=== PATIENT | female | born 1970 | race Caucasian/White ===

== ENCOUNTER 2016-05-28 10:37 | Emergency (ER) | payer OTHER ==
[~2016-05-28] VITALS: Ht 156.2 cm; Wt 113.5 kg
[2016-05-28 10:39] VITALS: BP 107/59; PULSE 82; RESP 20; TEMP 98.4; O2SAT 96
[2016-05-28 10:43] VITALS: PULSE 96; RESP 30; O2SAT 100
[2016-05-28] MEDS ORDERED: diphenhydrAMINE HCL 50 MG/ML VIAL IM ONE (11:15)
[2016-05-28] MEDS ORDERED: LORazepam 2 MG/ML VIAL IM ONE (11:15)
[2016-05-28] MEDS ORDERED: LEVO25TA4 PO ×2 (11:22→11:29)
[2016-05-28] MEDS ORDERED: D32000TA PO (11:29)
[2016-05-28] MEDS ORDERED: LIOT25TA3 PO (11:29)
[2016-05-28] MEDS ORDERED: NEXI40CA PO (11:29)
[2016-05-28] MEDS ORDERED: VITA500C (11:29)
[2016-05-28] MEDS ORDERED: TRI-TAB3 (11:32)
[2016-05-28] MEDS ORDERED: TRIH5TAB2 PO (11:42)
[2016-05-28] MEDS ORDERED: PROB1CAP12 (11:42)
[2016-05-28] MEDS ORDERED: ACIDCAP5 (11:42)
[2016-05-28] MEDS ORDERED: BENA25TA3 PO (11:42)
[2016-05-28] MEDS ORDERED: CLOZ25 PO (11:44)
[2016-05-28] MEDS ORDERED: CLOZ100 PO (11:44)
[2016-05-28 12:19] VITALS: BP 139/72; TEMP 98.5
[2016-05-28 12:26] LABS: AUTOMATED NEUTROPHIL # 9.3 TH/MM3 (1.8-7.7); BASOPHIL # 0.1 TH/MM3 (0-0.2); EOSINOPHIL # 0.2 TH/MM3 (0-0.4); EOSINOPHIL % 1.9 % (0.0-4.0); HEMATOCRIT 40.9 % (35.0-46.0); HEMO FLAGS DIFF FINAL; LYMPH % 15.1 % (9.0-44.0); LYMPHOCYTE # 1.8 TH/MM3 (1.0-4.8); MEAN CORPUSCULAR HEMOGLOBIN 26.9 PG (27.0-34.0); MEAN CORPUSCULAR HGB CONC 32.8 % (32.0-36.0); MONO % 4.8 % (0.0-8.0); NEUT % 77.2 % (16.0-70.0); PLATELET COUNT 240 TH/MM3 (150-450); RED BLOOD COUNT 4.99 MIL/MM3 (4.00-5.30); RED CELL DISTRIBUTION WIDTH 18.9 % (11.6-17.2)
[2016-05-28 12:34] LABS: AMPHETAMINE, URINE NEG (NEG); BARBITURATES, URINE NEG (NEG); COCAINE, URINE NEG (NEG)
[2016-05-28 12:43] LABS: ALKALINE PHOSPHATASE 123 U/L (45-117); ALT (GPT) 113 U/L (10-53); ANION GAP 13 MEQ/L (5-15); AST (GOT) 116 U/L (15-37); BICARBONATE 20.1 MEQ/L (21.0-32.0); BLOOD UREA NITROGEN 8 MG/DL (7-18); CHLORIDE 104 MEQ/L (98-107); GLOMERULAR FILTRATION RATE 74 ML/MIN (>89); PHENOBARBITAL LESS THAN 2.1 MCG/ML (15.0-40.0); POTASSIUM 4.1 MEQ/L (3.5-5.1); SODIUM (NA) 137 MEQ/L (136-145); TOTAL BILIRUBIN ADULT 0.3 MG/DL (0.2-1.0)
[2016-05-28 12:47] LABS: ACETAMINOPHEN LESS THAN 2.0 MCG/ML (10.0-30.0)
--- NOTE | 2016-05-28 12:52 | PD ---
HPI Chief Complaint: Psychiatric Symptoms Time Seen by Provider: 11:03 Travel History International Travel<30 days: No Contact w/Intl Traveler<30days: No Traveled to known affect area: No History of Present Illness HPI Patient 45-year-old female presents emergency department for evaluation of psychosis. Patient apparently is in a longterm and police was called because apparently the patient had not been taking her medications in the [place] hearing voices and thinking the world was going to blow up. Patient is been to our facility before. She is rocking [id number] in a stretcher screaming. She denies any physical complaints chest pain abdominal pain nausea vomiting shortness of breath. Patient was brought in by law enforcement under voluntary status. No other information is available as environmental lawyer his left prior to me being able to talk to them. PFSH Past Medical History Bipolar Disorder: Yes Diabetes: Yes Patient Takes Glucophage: No Diminished Hearing: No Schizophrenia: Yes Tetanus Vaccination: Unknown Influenza Vaccination: No ?: Unknown Past Surgical History Surgical History: No Previous Surgery Social History Alcohol Use: No (DENIES) Tobacco Use: No (DENIES) Substance Use: No Allergies-Medications (Allergen,Severity, Reaction): Coded Allergies: Haldol (Verified Allergy, Unknown, 05/28/16) NO RESPONSE WHEN ASKED WHAT TYPE OF ALLERGY Seroquel (Verified Allergy, Unknown, 05/28/16) NO RESPONSE WHEN ASKED THE TYPE OF ALLERGY Reported Meds & Prescriptions Reported Meds & Active Scripts Active Reported Clozaril (Clozapine) 100 Mg Tab 100 Mg PO BID Clozaril (Clozapine) 25 Mg Tab 50 Mg PO BID Acidophilus Extra Strengt (Lactobacillus) 1 Cap Cap Acidophilus (Probiotic Product) 1 Cap Cap 200 Mg Trihexyphenidyl (Trihexyphenidyl HCl) 5 Mg Tab 5 Mg PO DAILY Benadryl Allergy (Diphenhydramine HCl) 25 Mg Tab 50 Mg PO Q6H PRN Benadryl Allergy (Diphenhydramine HCl) 25 Mg Tab 25 Mg PO Q6H PRN Tri-Previfem (Norgestimate-Ethinyl Estradiol) 0.18/0.215/0.25 Mg-35 Mcg Tab 35 .ROUTE Nexium (Esomeprazole DR) 40 Mg Capdr 40 Mg PO DAILY Liothyronine (Liothyronine Sodium) 25 Mcg Tab 25 Mcg PO DAILY Levothyroxine (Levothyroxine Sodium) 25 Mcg Tab 25 Mcg PO DAILY D3 (Cholecalciferol) 2,000 Unit Tab 5,000 Units PO DAILY C-500 (Ascorbic Acid) 500 Mg Chew 500 Mg DAILY Levothyroxine (Levothyroxine Sodium) 25 Mcg Tab 25 Mcg PO DAILY Review of Systems Except as stated in HPI: all other systems reviewed are Neg Physical Exam Narrative GENERAL: Well-developed, obese rocking back and forth in a stretcher screaming and a minimally. SKIN: Warm and dry. HEAD: Atraumatic. Normocephalic. EYES: Pupils equal and round. No scleral icterus. No injection or drainage. ENT: No nasal bleeding or discharge. Mucous membranes pink and moist. NECK: Trachea midline. No JVD. CARDIOVASCULAR: Regular rate and rhythm. No murmur appreciated. RESPIRATORY: No accessory muscle use. Clear to auscultation. Breath sounds equal bilaterally. GASTROINTESTINAL: Abdomen soft, non-tender, nondistended. Hepatic and splenic margins not palpable. MUSCULOSKELETAL: No obvious deformities. No clubbing. No cyanosis. No edema. NEUROLOGICAL: Awake and alert. No obvious cranial nerve deficits. Motor grossly within normal limits. Normal speech. PSYCHIATRIC: Endorses suicidal ideation, states that she thinks the world is going to blow up and has been hearing voices. Data Data Last Documented VS Vital Signs Date Time Temp Pulse Resp B/P Pulse Ox O2 Delivery O2 Flow Rate FiO2 05/28/16 18:40 98.4 92 18 133/64 99 Room Air Orders Complete Blood Count With Diff (05/28/16 10:46) Comprehensive Metabolic Panel (05/28/16 10:46) Urinalysis - C+S If Indicated (05/28/16 10:46) Ed Urine Pregnancytest Poc (05/28/16 10:46) Psych Screen (05/28/16 10:46) Phenobarbital (05/28/16 10:46) [place] (Li) (05/28/16 10:46) Drug Screen, Random Urine (05/28/16 10:46) Alcohol (Ethanol) (05/28/16 10:46) Salicylates (Aspirin) (05/28/16 10:46) Tylenol (Acetaminophen) (05/28/16 10:46) Lorazepam Inj (Ativan Inj) (05/28/16 11:15) Diphenhydramine Inj (Benadryl Inj) (05/28/16 11:15) Urine Culture (05/28/16 12:10) Cephalexin (Keflex) (05/28/16 14:00) Diet Regular Basic (05/28/16 Dinner) Labs Laboratory Tests Test 05/28/16 05/28/16 12:08 12:10 White Blood Count 12.0 TH/MM3 Red Blood Count 4.99 MIL/MM3 Hemoglobin 13.4 GM/DL Hematocrit 40.9 % Mean Corpuscular Volume 82.0 FL Mean Corpuscular Hemoglobin 26.9 PG Mean Corpuscular Hemoglobin 32.8 % Concent Red Cell Distribution Width 18.9 % Platelet Count 240 TH/MM3 Mean Platelet Volume 9.8 FL Neutrophils (%) (Auto) 77.2 % Lymphocytes (%) (Auto) 15.1 % Monocytes (%) (Auto) 4.8 % Eosinophils (%) (Auto) 1.9 % Basophils (%) (Auto) 1.0 % Neutrophils # (Auto) 9.3 TH/MM3 Lymphocytes # (Auto) 1.8 TH/MM3 Monocytes # (Auto) 0.6 TH/MM3 Eosinophils # (Auto) 0.2 TH/MM3 Basophils # (Auto) 0.1 TH/MM3 CBC Comment DIFF FINAL Differential Comment Sodium Level 137 MEQ/L Potassium Level 4.1 MEQ/L Chloride Level 104 MEQ/L Carbon Dioxide Level 20.1 MEQ/L Anion Gap 13 MEQ/L Blood Urea Nitrogen 8 MG/DL Creatinine 0.84 MG/DL Estimat Glomerular Filtration 74 ML/MIN Rate Random Glucose 189 MG/DL Calcium Level 9.6 MG/DL Total Bilirubin 0.3 MG/DL Aspartate Amino Transf 116 U/L (AST/SGOT) Alanine Aminotransferase 113 U/L (ALT/SGPT) Alkaline Phosphatase 123 U/L Total Protein 7.6 GM/DL Albumin 3.6 GM/DL Salicylates Level 3.1 MG/DL Acetaminophen Level LESS THAN 2.0 MCG/ML Phenobarbital Level LESS THAN 2.1 MCG/ML [place] Level LESS THAN 0.1 MEQ/L Ethyl Alcohol Level 3 MG/DL Urine Color YELLOW Urine Turbidity HAZY Urine pH 5.5 Urine Specific [place] 1.013 Urine Protein 30 mg/dL Urine Glucose (UA) NEG mg/dL Urine Ketones 10 mg/dL Urine Occult Blood MOD Urine Nitrite POS Urine Bilirubin NEG Urine Urobilinogen LESS THAN 2.0 MG/DL Urine Leukocyte Esterase SMALL Urine RBC 3 /hpf Urine WBC 11 /hpf Urine Squamous Epithelial 6 /hpf Cells Urine Transitional Epithelial <1 /hpf Cells Urine Amorphous Sediment RARE Urine Bacteria MANY /hpf Urine Hyaline Casts 9 /lpf Urine Mucus FEW /lpf Microscopic Urinalysis Comment CULTURE INDICATED Urine Opiates Screen NEG Urine Barbiturates Screen NEG Urine Amphetamines Screen NEG Urine Benzodiazepines Screen NEG Urine Cocaine Screen NEG Urine Cannabinoids Screen NEG MDM Medical Decision Making Medical Screen Exam Complete: Yes Emergency Medical Condition: Yes Differential Diagnosis Psychosis, urinary tract infection, poor social situation. Narrative Course Patient was roomed in emergency department, she was given Ativan and Benadryl IM. This calmed her down significantly. She was able to provide me the address from which she came and [place] [address] [place] The only paperwork that she has is a standard med reconciliation form. There is no address on this form and no institutional name on this form. I've attempted to locate where she came from and we are being unsuccessful at this time. We will ultimately have to get case management involved for disposition planning. Patient incidentally does have a urinary tract infection recommend Keflex 4 times a day for 7 days. She also has transaminitis without evidence for acute liver failure. This can be followed up on outpatient basis. Patient is medically stable for psychiatric evaluation and disposition. I believe that she is both gravely disabled and a threat to herself. Given that she is rocking back and forth and initially unable to provide history to me I have placed her under Rose act. [facility] was notified by nursing of this patient's case. I have some concerns after we have tried to locate this facility that that may be an unlicensed facility. [facility] is sending a worker out to talk with the patient and get further history today. Of course this may be part of her psychosis as well. Unfortunately no facesheet and no address was sent with her. Diagnosis Primary Impression: Acute psychosis Condition: Luis Kraft MD May 28, 2016 12:52
[2016-05-28 12:58] LABS: BACTERIA, URINE MANY /hpf; BLOOD, URINE MOD (NEG); GLUCOSE,URINE NEG (NEG); HYALINE CAST, URINE 9 /lpf (RARE); KETONE, URINE 10 mg/dL (NEG); MUCUS URINE FEW /lpf (OCC); PH, URINE 5.5 (5.0-8.5); SQUAMOUS EPITHELIAL CELL URINE 6 /hpf (0-5); TRANSITIONAL EPI CELLS, URINE <1 /hpf; URINE COLOR YELLOW (YELLW/STRAW)
[2016-05-28 12:59] LABS: COMMENT (UR) CULTURE INDICATED; CULTURE IF INDICATED CULTURE INDICATED; NITRITE,URINE POS (NEG)
[2016-05-28] MEDS: CEPHALEXIN MONOHYDRATE 500 MG CAP PO SCH ×3 (13:21→21:00)
[2016-05-28 18:40] VITALS: BP 133/64; PULSE 92; RESP 18; TEMP 98.4; O2SAT 99
[2016-05-28] MEDS ORDERED: LORazepam 2 MG/ML VIAL IM PRN (20:45)
[2016-05-28] MEDS ORDERED: LORazepam 2 MG TAB PO PRN (20:45)
[2016-05-28 22:21] VITALS: BP 128/60; PULSE 73; RESP 18; O2SAT 97
[2016-05-29 02:05] VITALS: RESP 18
[2016-05-29 06:30] VITALS: BP 140/65; PULSE 89; RESP 18; O2SAT 96
[2016-05-29] MEDS ORDERED: CEPH-460 PO (09:12)
[2016-05-29] MEDS: CEPHALEXIN MONOHYDRATE 500 MG CAP PO SCH (09:12)
== END 2016-05-29 09:39 ==
LOC: NEPA 10:37 → NEPJ 05-29 09:39
DX: F23 Brief psychotic disorder (principal); E11.9 Type 2 diabetes mellitus without complications; N39.0 Urinary tract infection, site not specified; B96.20 Unspecified Escherichia coli [E. coli] as the cause of diseases classified elsewhere
CPT/HCPCS: 80053; 80178; 80184; 80307; 81001; 84703; 85025; 87077; 87086; 87186; 96372; 99284; J1200; J2060

== ENCOUNTER 2016-11-28 15:24 | Inpatient (IN) | payer OTHER, MEDICARE ==
[~2016-11-28] VITALS: Ht 154.9 cm; Wt 114.3 kg
[~2016-11-28 15:24] MED LIST: ACIDCAP5; BENA25TA3 PO; CEPH-460 PO; CLOZ100 PO; CLOZ25 PO; D32000TA PO; LEVO25TA4 PO; LIOT25TA3 PO; NEXI40CA PO; PROB1CAP12; TRI-TAB3; TRIH5TAB2 PO; VITA500C
[2016-11-28 15:40] VITALS: BP 160/88; PULSE 99; RESP 18; TEMP 98.9; O2SAT 97
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
[2016-11-28 16:52] LABS: AUTOMATED NEUTROPHIL # 7.3 TH/MM3 (1.8-7.7); BASOPHIL # 0.1 TH/MM3 (0-0.2); EOSINOPHIL # 0.4 TH/MM3 (0-0.4); EOSINOPHIL % 3.5 % (0.0-4.0); HEMATOCRIT 42.5 % (35.0-46.0); HEMO FLAGS DIFF FINAL; LYMPHOCYTE # 2.2 TH/MM3 (1.0-4.8); MEAN CELL VOLUME 89.5 FL (80.0-100.0); MEAN CORPUSCULAR HEMOGLOBIN 28.9 PG (27.0-34.0); MEAN CORPUSCULAR HGB CONC 32.3 % (32.0-36.0); MONO % 5.8 % (0.0-8.0); NEUT % 68.7 % (16.0-70.0); PLATELET COUNT 262 TH/MM3 (150-450); RED BLOOD COUNT 4.76 MIL/MM3 (4.00-5.30); RED CELL DISTRIBUTION WIDTH 14.4 % (11.6-17.2); WHITE BLOOD COUNT 10.7 TH/MM3 (4.0-11.0)
[2016-11-28 17:07] LABS: ALT (GPT) 73 U/L (10-53); ANION GAP 9 MEQ/L (5-15); AST (GOT) 51 U/L (15-37); BICARBONATE 23.5 MEQ/L (21.0-32.0); BLOOD UREA NITROGEN 19 MG/DL (7-18); CHLORIDE 105 MEQ/L (98-107); GLOMERULAR FILTRATION RATE 64 ML/MIN (>89); POTASSIUM 4.4 MEQ/L (3.5-5.1); SODIUM (NA) 137 MEQ/L (136-145)
[2016-11-28 17:09] LABS: ALKALINE PHOSPHATASE 77 U/L (45-117); TOTAL BILIRUBIN ADULT 0.2 MG/DL (0.2-1.0)
[2016-11-28 18:43] VITALS: BP 155/67; PULSE 94; RESP 18; O2SAT 98
[2016-11-28 22:00] VITALS: BP 122/58; PULSE 64; RESP 19; O2SAT 96
[2016-11-28] MEDS ORDERED: LEVO125T4 PO (23:40)
[2016-11-28] MEDS ORDERED: METF-382 PO (23:40)
[2016-11-28] MEDS ORDERED: ATOR40TA16 PO (23:58)
[2016-11-28] MEDS ORDERED: OMEP20TA PO (23:59)
[2016-11-29] MEDS ORDERED: ZOLO100T PO (00:16)
[2016-11-29] MEDS ORDERED: LEVEMIR SQ (00:25)
[2016-11-29] MEDS ORDERED: GLIM2TAB PO (00:29)
[2016-11-29 02:05] VITALS: BP 104/57; PULSE 78; PULSE 88; RESP 17; RESP 18; O2SAT 96; O2SAT 97
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
[2016-11-29] MEDS ORDERED: ALUMINUM/MAGNESIUM/SIMETH 30 ML CUP PO PRN ×2 (12:00)
[2016-11-29] MEDS ORDERED: diphenhydrAMINE HCL 50 MG/ML VIAL IM PRN (12:00)
[2016-11-29] MEDS ORDERED: diphenhydrAMINE HCL 50 MG CAP PO PRN (12:00)
[2016-11-29] MEDS ORDERED: ACETAMINOPHEN 325 MG TAB PO PRN ×2 (12:00)
[2016-11-29] MEDS ORDERED: MAGNESIUM HYDROXIDE SUSP 30 ML CUP PO PRN (12:00)
[2016-11-29] MEDS ORDERED: LORazepam 2 MG/ML VIAL IM PRN (12:00)
--- NOTE | 2016-11-29 12:06 | HHI.HP ---
Provisional Diagnosis Admission Date Nov 29, 2016 at 11:57 Young Harris I. Schizophrenia, chronic paranoid type Certification of Person's Competence To Provide Express and Informed Consent I have personally examined Muna Juarez , a person being served at [facility] on, Nov 29, 2016 12:03. Express and informed consent means consent voluntarily given in writing, by a competent person, after sufficient explanation and disclosure of the subject matter involved to enable the person to make a knowing and willful decision without any element of force, fraud, deceit, duress, or other form of constraint or coercion. This person is 18 years of age or older, is not now known to be incompetent to consent to treatment with a guardian advocate, and does not have a health care surrogate or proxy currently making medical treatment decisions. I have found this person to be one of the following: [x] Competent to provide express and informed consent, as defined above, for voluntary admission to this facility and is competent to provide express and informed consent for treatment. He/she has the consistent capacity to make well reasoned, willful, and knowing decisions concerning his or her medical or mental health treatment. The person fully and consistently understands the purpose of the admission for examination/placement and is fully capable of personally exercising all rights [place] Incompetent to provide express and informed consent to voluntary admission, and this is incompetent to provide express and informed consent to treatment. The person must be transferred to involuntary status and a petition for a guardian advocate filed with the Circuit Court. [] Refusing to provide express and informed consent to voluntary admission but is competent to provide express and informed consent for treatment. The person must be discharged or transferred to involuntary status. Form shall be completed within 24 hours of a person's arrival at the receiving facility and filed in the clinical record of each person: 1. Admitted on a voluntary basis 2. Permitted to provide express and informed consent to his/her own treatment 3. Allowed to transfer from involuntary to voluntary status 4. Prior to permitting a person to consent to his or her own treatment after having been previously found incompetent to consent to treatment. History of Present Illness Capacity: Has Capacity HPI This is a 46-year-old female who was Rose acted after informing law enforcement that she was hearing voices telling her to kill herself. The patient apparently has been experiencing auditory hallucinations more frequently over the last several weeks. She resides in a detention in [facility] and she is no longer able to tolerate these auditory hallucinations. The patient is not a good historian as she is currently responding to internal stimuli. She is rocking back and forth and exhibits thought blocking as well as self admitted auditory hallucinations. Patient is very disturbed by these hallucinations and does not feel she can resist the urge to harm or kill herself. She does state that she has been taking her prescribed medication, which includes Clozaril. 150 mg twice a day as well as Zoloft 100 mg daily. Obviously, the patient's Clozaril is not working and her psychosis is unmanageable. Patient also feels paranoid and unsafe in her detention. She has a suicidal plan of overdosing on her medicines. She denies the use of alcohol or drugs. Review of Systems Except as stated in HPI: all other systems reviewed are Neg Past Psych History Psychological trauma history Denied for psychological trauma but the patient has been treated both as an inpatient and outpatient. Violence risk - others (6 mos) Minimal Violence risk - self (6 mos) High Substance Abuse History Drugs/Alcohol past 12 months Denied Past Family Social History Coded Allergies: haloperidol (Unverified Allergy, Unknown, 10/18/16) NO RESPONSE WHEN ASKED WHAT TYPE OF ALLERGY quetiapine (Unverified Allergy, Unknown, 10/18/16) NO RESPONSE WHEN ASKED THE TYPE OF ALLERGY Reported Medications Glimepiride (Glimepiride) 2 Mg Tab, 2 MG PO DAILY for Blood Sugar Management, # 30 TAB 0 Refills Take with breakfast or first main meal 11/29/16 Insulin Detemir Inj (Levemir Inj) 1,000 unit/ 10 ML Vial, 40 UNITS SQ HS for Blood Sugar Management, VIAL 0 Refills Do not mix with any other Insulin. 11/29/16 Sertraline (Zoloft) 100 Mg Tab, 100 MG PO DAILY, #30 TAB 0 Refills 11/29/16 Omeprazole (Omeprazole) 20 Mg Tab, 20 MG PO DAILY, #30 TAB 0 Refills 11/28/16 Atorvastatin (Atorvastatin) 40 Mg Tab, 40 MG PO HS for Cholesterol Management, # 30 TAB 0 Refills 11/28/16 Levothyroxine (Levothyroxine) 125 Mcg Tab, 125 MCG PO DAILYAC for Thyroid, #30 TAB 0 Refills 11/28/16 Metformin ER (Metformin ER) 1,000 Mg Jossue, 1000 MG PO DAILY for Blood Sugar Management, #30 TAB 0 Refills With evening meal 11/28/16 Clozapine (Clozaril) 100 Mg Tab, 150 MG PO BID for Schizophrenia, TAB 0 Refills 05/28/16 Trihexyphenidyl (Trihexyphenidyl) 5 Mg Tab, 5 MG PO HS for Parkinson Disease Mgmt, #30 TAB 0 Refills 05/28/16 Norgestimate-Ethinyl Estradiol (Tri-Previfem) 0.18/0.215/0.25 Mg-35 Mcg Tab, 35 .ROUTE 05/28/16 Liothyronine (Liothyronine) 25 Mcg Tab, 25 MCG PO DAILY for Thyroid Supplement, #30 TAB 0 Refills 05/28/16 Cholecalciferol (D3) 2,000 Unit Tab, 5000 UNITS PO DAILY, #1 05/28/16 Ascorbic Acid (C-500) 500 Mg Chew, 500 MG DAILY, #2 05/28/16 Discontinued Reported Medications Esomeprazole DR (Nexium) 40 Mg Capdr, 40 MG PO DAILY, CAP 0 Refills 05/28/16 Clozapine (Clozaril) 25 Mg Tab, 50 MG PO BID for Schizophrenia, TAB 0 Refills 05/28/16 Lactobacillus (Acidophilus Extra Strengt) 1 Cap Cap 05/28/16 Probiotic Product (Acidophilus) 1 Cap Cap, 200 MG 05/28/16 Diphenhydramine (Benadryl Allergy) 25 Mg Tab, 50 MG PO Q6H Y for ALLERGIES, TAB 0 Refills 05/28/16 Diphenhydramine (Benadryl Allergy) 25 Mg Tab, 25 MG PO Q6H Y for ALLERGIES, TAB 0 Refills 05/28/16 Levothyroxine (Levothyroxine) 25 Mcg Tab, 25 MCG PO DAILY for Thyroid, #30 TAB 0 Refills 05/28/16 Levothyroxine (Levothyroxine) 25 Mcg Tab, 25 MCG PO DAILY for Thyroid, #30 TAB 0 Refills 05/28/16 Discontinued Scripts Cephalexin (Keflex) 500 Mg Cap, 500 MG PO Q6H for Infection for 7 Days, CAP 0 Refills Prov:Judith Velazquez 05/29/16 Current Medications Medications (Trade) Dose Ordered Sig/Isra Route Start Time Stop Time Status Last Admin (Tylenol) 650 mg Q4H PRN PO 11/29/16 12:00 UNV (Milk Of Magnesia Liq) 30 ml DAILY PRN PO 11/29/16 12:00 UNV (Mag-Al Plus Susp Liq) 30 ml Q6H PRN PO 11/29/16 12:00 UNV (Ativan) 1 mg Q6H PRN PO 11/29/16 12:00 UNV (Ativan Inj) 1 mg Q6H PRN IM 11/29/16 12:00 UNV (Benadryl) 50 mg Q6H PRN PO 11/29/16 12:00 UNV (Benadryl Inj) 50 mg Q6H PRN IM 11/29/16 12:00 UNV (Tylenol) 650 mg Q4H PRN PO 11/29/16 12:00 UNV (Milk Of Magnesia Liq) 30 ml DAILY PRN PO 11/29/16 12:00 UNV (Mag-Al Plus Susp Liq) 30 ml Q6H PRN PO 11/29/16 12:00 UNV (Lipitor) 40 mg HS PO 11/29/16 21:00 UNV (Amaryl) 2 mg DAILY PO 11/30/16 09:00 UNV (Levemir Inj) 40 units HS SQ 11/29/16 21:00 UNV (Synthroid) 125 mcg DAILYAC PO 11/30/16 08:00 UNV (Zoloft) 100 mg DAILY PO 11/30/16 09:00 UNV (Artane) 5 mg HS PO 11/29/16 21:00 UNV Non-Formulary Medication 1,000 mg DAILY PO 11/30/16 09:00 UNV Non-Formulary Medication 20 mg DAILY PO 11/30/16 09:00 UNV Family History Positive for mood disorders. Social History Lives in a detention setting in the [facility]. Treated by Krunal Brizuela. Unemployed and receives Social Security disability. Has family members who live in [facility] but with whom she is not close. Denies use of alcohol or drugs. Patient's Strengths (min. 2) Verbal and has access to healthcare. Physical Exam GENERAL: SKIN: Warm and dry. HEAD: Normocephalic. EYES: No scleral icterus. No injection or drainage. NECK: Supple, trachea midline. No JVD or lymphadenopathy. CARDIOVASCULAR: Regular rate and rhythm without murmurs, gallops, or rubs. RESPIRATORY: Breath sounds equal bilaterally. No accessory muscle use. GASTROINTESTINAL: Abdomen soft, non-tender, nondistended. MUSCULOSKELETAL: No cyanosis, or edema. BACK: Nontender without obvious deformity. No CVA tenderness. Vital Signs Vital Signs Date Time Temp Pulse Resp B/P (MAP) Pulse Ox O2 Delivery O2 Flow Rate FiO2 11/29/16 02:05 78 18 104/57 (73) 96 Room Air 11/28/16 15:40 98.9 Lab Results Test 11/28/16 16:15 11/28/16 16:35 Urine Opiates Screen NEG Urine Barbiturates Screen NEG Urine Amphetamines Screen NEG Urine Benzodiazepines Screen NEG Urine Cocaine Screen NEG Urine Cannabinoids Screen NEG White Blood Count 10.7 TH/MM3 Red Blood Count 4.76 MIL/MM3 Hemoglobin 13.7 GM/DL Hematocrit 42.5 % Mean Corpuscular Volume 89.5 FL Mean Corpuscular Hemoglobin 28.9 PG Mean Corpuscular Hemoglobin Concent 32.3 % Red Cell Distribution Width 14.4 % Platelet Count 262 TH/MM3 Mean Platelet Volume 9.6 FL Neutrophils (%) (Auto) 68.7 % Lymphocytes (%) (Auto) 21.0 % Monocytes (%) (Auto) 5.8 % Eosinophils (%) (Auto) 3.5 % Basophils (%) (Auto) 1.0 % Neutrophils # (Auto) 7.3 TH/MM3 Lymphocytes # (Auto) 2.2 TH/MM3 Monocytes # (Auto) 0.6 TH/MM3 Eosinophils # (Auto) 0.4 TH/MM3 Basophils # (Auto) 0.1 TH/MM3 CBC Comment DIFF FINAL Differential Comment Blood Urea Nitrogen 19 MG/DL Creatinine 0.95 MG/DL Random Glucose 195 MG/DL Total Protein 7.8 GM/DL Albumin 3.9 GM/DL Calcium Level 10.1 MG/DL Alkaline Phosphatase 77 U/L Aspartate Amino Transf (AST/SGOT) 51 U/L Alanine Aminotransferase (ALT/SGPT) 73 U/L Total Bilirubin 0.2 MG/DL Sodium Level 137 MEQ/L Potassium Level 4.4 MEQ/L Chloride Level 105 MEQ/L Carbon Dioxide Level 23.5 MEQ/L Anion Gap 9 MEQ/L Estimat Glomerular Filtration Rate 64 ML/MIN Mental Status Examination Speech: Hesitant Orientation: x3 Memory: Unremarkable Thought Process: Organized, Loose Association Thought Content: Bizarre thinking, Paranoid Hallucination Type: Auditory Attention and Concentration: Abnormal Suicidal Ideation: Yes Previous Suicide Attempts: No Homicidal Ideation: No Previous Homicide Attempts: No Insight: Fair Judgment: Unrealistic Affect: Anxious Mood: Anxious Motor Activity: Normal gait Assessment & Plan Problem List: (1) Schizophrenia, paranoid, chronic ICD Codes: F20.0 - Paranoid schizophrenia Assessment & Plan Estimated LOS: days 46-year-old female with multiyear history of paranoid schizophrenia, presenting under a Rose act for auditory hallucinations of a command nature, telling her to kill herself. It appears the patient's current dose of Clozaril is not working and the patient is at high risk for self-harm. For this reason she is being admitted for evaluation and treatment. This physician has ordered a CBC and apprehensive metabolic panel to determine the patient's possible infection status and whether she has a metabolic issue that might be causing or contributing to her psychosis. Patient is noted to be diabetic and hemoglobin A1c is being obtained as well as comprehensive metabolic panel and a hospitalist consult. Also ordered his thyroid- stimulating hormone level, vitamin B 12 level and vitamin D level. Patient has history of thyroid disease and deficiencies in TSH, vitamin B-12 4 vitamin D may also be causing or contributing to her psychosis. She will receive an EKG to determine her cardiac conduction status as this physician is ordering a slight increase in her Clozaril to 200 mg twice a day. This physician spoke with the patient's nurse regarding her recent auditory hallucinations. Case management will be involved to obtain further information and assist with disposition planning. Kirt Neves MD Nov 29, 2016 12:06
[2016-11-29 13:04] VITALS: BP 138/77; PULSE 92; RESP 18; O2SAT 97
[2016-11-29] MEDS: LORazepam 1 MG TAB PO PRN ×2 (14:08→23:34)
[2016-11-29 14:15] VITALS: BP 138/77; PULSE 92; RESP 18; O2SAT 97
[2016-11-29 18:30] VITALS: BP 133/93; PULSE 88; RESP 19; TEMP 98; O2SAT 96
[2016-11-29] MEDS ORDERED: ATORVASTATIN 40 MG TAB PO SCH (21:00)
[2016-11-29] MEDS: TRIHEXYPHENIDYL HCL 5 MG TAB PO SCH (21:34)
[2016-11-29] MEDS: cloZAPine 100 MG TAB PO SCH (21:34)
[2016-11-29] MEDS: INSULIN DETEMIR 100 UNITS/ML VIAL SQ SCH (21:36)
[2016-11-30] MEDS: LEVOTHYROXINE SODIUM 125 MCG TAB PO SCH (05:49)
[2016-11-30 06:16] VITALS: BP 100/58; PULSE 89; RESP 18; TEMP 97.5; O2SAT 96
[2016-11-30] MEDS: metFORMIN HCL 500 MG TAB PO SCH ×2 (09:11→17:35)
[2016-11-30] MEDS: cloZAPine 100 MG TAB PO SCH ×2 (09:11→20:35)
[2016-11-30] MEDS: SERTRALINE HCL 100 MG TAB PO SCH (09:11)
[2016-11-30] MEDS: PANTOPRAZOLE SOD 20 MG DELAYED RELEASE TAB PO SCH (09:11)
[2016-11-30 09:46] LABS: AUTOMATED NEUTROPHIL # 5.5 TH/MM3 (1.8-7.7); BASOPHIL # 0.1 TH/MM3 (0-0.2); BASOPHIL % 1.1 % (0.0-2.0); EOSINOPHIL # 0.3 TH/MM3 (0-0.4); HEMATOCRIT 40.5 % (35.0-46.0); HEMO FLAGS DIFF FINAL; LYMPH % 22.4 % (9.0-44.0); LYMPHOCYTE # 1.9 TH/MM3 (1.0-4.8); MEAN CELL VOLUME 89.1 FL (80.0-100.0); MEAN CORPUSCULAR HEMOGLOBIN 29.2 PG (27.0-34.0); MEAN CORPUSCULAR HGB CONC 32.8 % (32.0-36.0); MONO % 6.1 % (0.0-8.0); NEUT % 66.4 % (16.0-70.0); PLATELET COUNT 235 TH/MM3 (150-450); RED BLOOD COUNT 4.55 MIL/MM3 (4.00-5.30); RED CELL DISTRIBUTION WIDTH 14.3 % (11.6-17.2); WHITE BLOOD COUNT 8.3 TH/MM3 (4.0-11.0)
[2016-11-30] MEDS: GLIMEPIRIDE 2 MG TAB PO SCH (10:35)
[2016-11-30 10:51] LABS: ANION GAP 8 MEQ/L (5-15); AST (GOT) 69 U/L (15-37); CHLORIDE 104 MEQ/L (98-107); GLOMERULAR FILTRATION RATE 72 ML/MIN (>89); POTASSIUM 3.8 MEQ/L (3.5-5.1); SODIUM (NA) 138 MEQ/L (136-145)
[2016-11-30 11:19] LABS: ALKALINE PHOSPHATASE 77 U/L (45-117); ALT (GPT) 88 U/L (10-53); BLOOD UREA NITROGEN 20 MG/DL (7-18); HDL CHOLESTEROL 45.2 MG/DL (40.0-60.0); LDL CHOLESTEROL 118 MG/DL (0-99); TOTAL BILIRUBIN ADULT 0.3 MG/DL (0.2-1.0)
[2016-11-30 12:34] LABS: HEMOGLOBIN A1a 1.4 %; HEMOGLOBIN A1b 1.4 %; HEMOGLOBIN Ao 80.9 %; HEMOGLOBIN F 1.4 %; HEMOGLOBIN LA1C 2.5 %; HEMOGLOBIN P3 4.2 %
--- NOTE | 2016-11-30 16:10 | PD.CONS ---
HPI Service [facility] Hospitalists Consult Requested By Psychiatric services Reason for Consult Medical management Primary Care Physician Unknown Diagnoses: History of Present Illness This is a 46yo female with a PMHX significant for hypothyroidism, IDDM, dyslipidemia, GERD, schizophrenia and depression who presented to the ED under Rose Act for suicidal ideation who has now been admitted to the inpatient psychiatric unit and Hospitalist services have been consulted for medical management. Patient seen and examined today. Patient lives in a fpc setting at [facility]. Patient denies any complaints at present. She denies any complaints of pain. Denies any fever or chills. She denies any weakness, numbness/tingling, chest pain or shortness of breath. She denies any nausea, vomiting or abdominal pain. She denies any diarrhea or urinary complaints. She does endorse constipation. She denies any previous history of liver abnormalities/Hepatitis. Patient follows with her PCP Dr. Sarah as outpatient. Review of Systems Except as stated in HPI: all other systems reviewed are Neg Past Family Social History Allergies: Coded Allergies: haloperidol (Unverified Allergy, Unknown, 10/18/16) NO RESPONSE WHEN ASKED WHAT TYPE OF ALLERGY quetiapine (Unverified Allergy, Unknown, 10/18/16) NO RESPONSE WHEN ASKED THE TYPE OF ALLERGY Past Medical History Diabetes Hypothyroidism Dyslipidemia GERD Schizophrenia Borderline personality disorder Suicidal ideation Depression Past Surgical History Patient denies any previous surgical history Reported Medications Clozaril (Clozapine) 100 Mg Tab 100 Mg PO BID Clozaril (Clozapine) 25 Mg Tab 50 Mg PO BID Acidophilus Extra Strengt (Lactobacillus) 1 Cap Cap Acidophilus (Probiotic Product) 1 Cap Cap 200 Mg Trihexyphenidyl (Trihexyphenidyl HCl) 5 Mg Tab 5 Mg PO DAILY Benadryl Allergy (Diphenhydramine HCl) 25 Mg Tab 50 Mg PO Q6H PRN Benadryl Allergy (Diphenhydramine HCl) 25 Mg Tab 25 Mg PO Q6H PRN Tri-Previfem (Norgestimate-Ethinyl Estradiol) 0.18/0.215/0.25 Mg-35 Mcg Tab 35 .ROUTE Nexium (Esomeprazole DR) 40 Mg Capdr 40 Mg PO DAILY Liothyronine (Liothyronine Sodium) 25 Mcg Tab 25 Mcg PO DAILY Levothyroxine (Levothyroxine Sodium) 25 Mcg Tab 25 Mcg PO DAILY D3 (Cholecalciferol) 2,000 Unit Tab 5,000 Units PO DAILY C-500 (Ascorbic Acid) 500 Mg Chew 500 Mg DAILY Levothyroxine (Levothyroxine Sodium) 25 Mcg Tab 25 Mcg PO DAILY Active Ordered Medications Current Medications Medications (Trade) Dose Ordered Sig/Isra Route Start Time Stop Time Status Last Admin (Ativan) 1 mg Q6H PRN PO 11/29/16 12:00 11/29/16 23:34 (Ativan Inj) 1 mg Q6H PRN IM 11/29/16 12:00 (Benadryl) 50 mg Q6H PRN PO 11/29/16 12:00 (Benadryl Inj) 50 mg Q6H PRN IM 11/29/16 12:00 (Tylenol) 650 mg Q4H PRN PO 11/29/16 12:00 (Milk Of Magnesia Liq) 30 ml DAILY PRN PO 11/29/16 12:00 (Mag-Al Plus Susp Liq) 30 ml Q6H PRN PO 11/29/16 12:00 (Lipitor) 40 mg HS PO 11/29/16 21:00 11/29/16 21:34 (Amaryl) 2 mg DAILY PO 11/30/16 09:00 11/30/16 10:35 (Levemir Inj) 40 units HS SQ 11/29/16 21:00 11/29/16 21:36 (Synthroid) 125 mcg DAILY@0600 PO 11/30/16 06:00 11/30/16 05:49 (Zoloft) 100 mg DAILY PO 11/30/16 09:00 11/30/16 09:11 (Artane) 5 mg HS PO 11/29/16 21:00 11/29/16 21:34 (Glucophage) 500 mg BIDPC PO 11/30/16 09:00 11/30/16 09:11 (Protonix) 20 mg DAILY PO 11/30/16 09:00 11/30/16 09:11 (Clozaril) 200 mg BID PO 11/29/16 21:00 11/30/16 09:11 (Cytomel) 25 mcg DAILY PO 12/01/16 09:00 Family History Diabetes, coronary artery disease, hypertension Social History Patient reports hx of tobacco use of 1/2 to 1 ppd since she was 21. Patient denies any EtOH consumption. Patient reports hx of previous marijuana and cocaine use but states she's not used since 2000. Patient denies any previous IV drug use. Physical Exam Vital Signs Vital Signs Date Time Temp Pulse Resp B/P (MAP) Pulse Ox O2 Delivery O2 Flow Rate FiO2 11/30/16 06:16 97.5 89 18 100/58 (72) 96 11/29/16 18:30 98.0 88 19 133/93 (106) 96 Physical Exam GENERAL: This is a well-nourished, well-developed obese patient, in no apparent distress. Awake and alert. SKIN: No rashes, ecchymoses or lesions. Cool and dry. HEAD: Atraumatic. Normocephalic. No temporal or scalp tenderness. EYES: Pupils equal round and reactive. Extraocular motions intact. No scleral icterus. No injection or drainage. ENT: Nose without bleeding or purulent drainage. Throat without erythema, tonsillar hypertrophy or exudate. Uvula midline. Airway patent. NECK: Trachea midline. No lymphadenopathy. Supple, nontender, no meningeal signs. CARDIOVASCULAR: Regular rate and rhythm without murmurs, gallops, or rubs. RESPIRATORY: Diminished but clear to auscultation. Breath sounds equal bilaterally. No wheezes, rales, or rhonchi. GASTROINTESTINAL: Abdomen soft, non-tender, nondistended. No hepato-splenomegaly , or palpable masses. No guarding. MUSCULOSKELETAL: Extremities without clubbing, cyanosis, or edema. No joint tenderness, effusion, or edema noted. No calf tenderness. NEUROLOGICAL: Awake and alert. Able to move all extremities. Nonfocal. Normal speech. PSYCHIATRIC: Affect flat, blunted. Laboratory Laboratory Tests Test 11/30/16 09:15 White Blood Count 8.3 Red Blood Count 4.55 Hemoglobin 13.3 Hematocrit 40.5 Mean Corpuscular Volume 89.1 Mean Corpuscular Hemoglobin 29.2 Mean Corpuscular Hemoglobin Concent 32.8 Red Cell Distribution Width 14.3 Platelet Count 235 Mean Platelet Volume 9.8 Neutrophils (%) (Auto) 66.4 Lymphocytes (%) (Auto) 22.4 Monocytes (%) (Auto) 6.1 Eosinophils (%) (Auto) 4.0 Basophils (%) (Auto) 1.1 Neutrophils # (Auto) 5.5 Lymphocytes # (Auto) 1.9 Monocytes # (Auto) 0.5 Eosinophils # (Auto) 0.3 Basophils # (Auto) 0.1 CBC Comment DIFF FINAL Differential Comment Blood Urea Nitrogen 20 Creatinine 0.85 Random Glucose 179 Total Protein 7.5 Albumin 3.9 Calcium Level 9.5 Alkaline Phosphatase 77 Aspartate Amino Transf (AST/SGOT) 69 Alanine Aminotransferase (ALT/SGPT) 88 Total Bilirubin 0.3 Sodium Level 138 Potassium Level 3.8 Chloride Level 104 Carbon Dioxide Level 26.0 Anion Gap 8 Estimat Glomerular Filtration Rate 72 Hemoglobin A1c 7.9 Triglycerides Level 250 Cholesterol Level 213 LDL Cholesterol 118 HDL Cholesterol 45.2 Cholesterol/HDL Ratio 4.71 Vitamin B12 Level 503 25-Hydroxy Vitamin D Total 33.4 Thyroid Stimulating Hormone 3rd Gen 5.520 Result Diagram: 11/30/1691411/30/16914 Assessment and Plan Assessment and Plan 46yo female with a PMHX significant for hypothyroidism, IDDM, dyslipidemia, GERD , schizophrenia and depression who presented to the ED under Rose Act for suicidal ideation who has now been admitted to the inpatient psychiatric unit and Hospitalist services have been consulted for medical management. Schizophrenia Depression/suicidal ideation - Management per psychiatric team - Insulin-dependent diabetes - HgbA1c 7.9 - Continue patient on Amaryl, metformin and Levemir 40 units daily - Accucheks - ISS - diabetic diet Hypothyroidism - continue patients home Levothyroxine 125mcg daily and Liothyronine 25mcg daily - TSH slightly outside of normal range - recommend follow-up with PCP in 6-8 weeks to recheck TSH level Transaminitis - hold statin - hepatitis panel ordered - liver US - monitor Dyslipidemia - statin therapy contraindicated at this time due to elevated LFTs - recommend patient follow up with PCP as outpatient to discuss restarting if lab values normalize or initiate alternative tx GERD - continue PPI Vitamin D deficiency - Continue patient on home dose of vitamin D supplementation Constipation - Elina colace BID - Miralax daily - monitor for BM Tobaccoism - Discussed smoking cessation DVT prophylaxis - patient is ambulatory Thank you very kindly for this consultation. We will continue to follow with you. Discussed with patient, Kavitha PHELPS and Shannan Isabel Nov 30, 2016 16:10
[2016-11-30] MEDS ORDERED: DEXTROSE 50% IN WATER 50 ML VIAL(D50) IV PUSH PRN (16:15)
[2016-11-30] MEDS ORDERED: GLUCAGON 1 MG/ML VIAL OTHER PRN (16:15)
[2016-11-30] MEDS ORDERED: POLYETHYLENE GLYCOL 17 GM PKG PO ONE (16:15)
--- NOTE | 2016-11-30 16:42 | HHI.PYPN ---
Subjective Remarks Patient is a 46-year-old woman, domiciled in the correction for about a year, unemployed, with past psychiatric history of schizophrenia, multiple psychiatric hospitalizations, 4 previous suicide attempts (last in January 2014 via overdose), history of remote polysubstance use, was brought under [place] act by police for command auditory hallucinations to kill herself. Patient was admitted to the inpatient psychiatric unit for further evaluation and management. He found lying in hospital bed asleep was able to wake up for interview. Patient states that shes been feeling very tired and she has not been able to sleep for the past couple of days. She reports that she had a panic attack in the correction and requested staff to bring her to the hospital. Patient reports that she didnt have any increase in command auditory hallucinations to kill herself telling her to inject insulin to herself which the voices were very intense and worsening over the past couple of weeks. Patient states that her mood has been not very good Sad) disease. Patient states that her current stressors have been living in the correction she believes that staff is not very understanding who wants to move out of the correction area patient reports having difficulty sleeping stated above, no change in appetite energy or concentration denies any suicide ideations but states the voices tell her to kill herself. Patient states that she is feeling very tired, endorses paranoid delusions but was unable to elaborate from [place] what, difficult to say. Patient states that she is not having experiencing any auditory or visual hallucinations at time of interview denied any SI or HI. Patient noted to have thought blocking throughout interview. Family psychiatric history: Patient reports her aunt and uncle with a diagnosis of schizophrenia Past psychiatric history: Previous diagnosis of schizophrenia and remote history of polysubstance use disorder, multiple previous psychiatric hospitalization, four previous suicide attempt (last being in January 2014 via overdose). Patient with history of state hospitalization for 2 years and discharged to correction year ago medication trials include clozapine for the past 2 years and reports compliance of medications. Substance use disorder: Tobacco (+), reported history of cocaine and ecstasy and alcohol use (few years ago) (, denies any current substance use. Past medical history: Diabetes, hypothyroidism, GERD, HLD Allergies: Haldol and quetiapine Social history: Domiciled in correction for about 1 year after discharge from [facility] hospital, contacts: Adali (caregiver in order correction) [phone]; Selina Juarez (mom) [phone]. Compensation Manager spoke with mother via telephone and she had stated that the patient was in [facility] hospitals age of for 2 years and discharged to this particular correction almost a year ago. She reports that the correction was a [place] and had been communicate with her daughter via telephone and was being told by the patient that she was going to kill herself over the past month but has been worsening recently. Mother states that she witnesses patient taking medications daily in the morning but is unsure whether the patient had been compliant in the evening dose. She reports that staff is usually present when watching patient take her medicines. Review of Systems Except as stated in HPI: all other systems reviewed are Neg Objective Alert: Yes [place]: Person, Place Mood: Other ("very tired") Affect: Restricted Memory Intact: Immediate, Recent, Remote Hallucinations: Auditory (command auditory hallucination to kill herself) Delusions: Yes Delusion Type: Paranoid Suicidal: Ideation (currently endorsing) Homicidal: Ideation (denies) Insight/Judgment Limited insight, impulse control and judgment Labs Labs reviewed. Test 11/30/16 09:15 White Blood Count 8.3 TH/MM3 Red Blood Count 4.55 MIL/MM3 Hemoglobin 13.3 GM/DL Hematocrit 40.5 % Mean Corpuscular Volume 89.1 FL Mean Corpuscular Hemoglobin 29.2 PG Mean Corpuscular Hemoglobin Concent 32.8 % Red Cell Distribution Width 14.3 % Platelet Count 235 TH/MM3 Mean Platelet Volume 9.8 FL Neutrophils (%) (Auto) 66.4 % Lymphocytes (%) (Auto) 22.4 % Monocytes (%) (Auto) 6.1 % Eosinophils (%) (Auto) 4.0 % Basophils (%) (Auto) 1.1 % Neutrophils # (Auto) 5.5 TH/MM3 Lymphocytes # (Auto) 1.9 TH/MM3 Monocytes # (Auto) 0.5 TH/MM3 Eosinophils # (Auto) 0.3 TH/MM3 Basophils # (Auto) 0.1 TH/MM3 CBC Comment DIFF FINAL Differential Comment Blood Urea Nitrogen 20 MG/DL Creatinine 0.85 MG/DL Random Glucose 179 MG/DL Total Protein 7.5 GM/DL Albumin 3.9 GM/DL Calcium Level 9.5 MG/DL Alkaline Phosphatase 77 U/L Aspartate Amino Transf (AST/SGOT) 69 U/L Alanine Aminotransferase (ALT/SGPT) 88 U/L Total Bilirubin 0.3 MG/DL Sodium Level 138 MEQ/L Potassium Level 3.8 MEQ/L Chloride Level 104 MEQ/L Carbon Dioxide Level 26.0 MEQ/L Anion Gap 8 MEQ/L Estimat Glomerular Filtration Rate 72 ML/MIN Hemoglobin A1c 7.9 % Triglycerides Level 250 MG/DL Cholesterol Level 213 MG/DL LDL Cholesterol 118 MG/DL HDL Cholesterol 45.2 MG/DL Cholesterol/HDL Ratio 4.71 RATIO Vitamin B12 Level 503 PG/ML 25-Hydroxy Vitamin D Total 33.4 ng/ML Thyroid Stimulating Hormone 3rd Gen 5.520 uIU/ML Vitals/IOs Vital Signs Date Time Temp Pulse Resp B/P (MAP) Pulse Ox O2 Delivery O2 Flow Rate FiO2 11/30/16 06:16 97.5 89 18 100/58 (72) 96 11/29/16 14:15 Room Air Assessment & Plan Problem List: (1) Schizophrenia, paranoid, chronic ICD Codes: F20.0 - Paranoid schizophrenia Assessment & Plan Patient is a 46-year-old woman who carries a diagnosis of schizophrenia, remote polysubstance use disorder, multiple hospitalizations previous suicide attempts was brought to the [place] act for command auditory hallucinations to kill herself which has been worsening over the past couple of weeks despite compliance of medications. Patient agrees to voluntary admission. Will continue clozapine 200 mg by mouth twice a day for psychosis. Patient last absolute neutrophil count was 5.5, will order clozapine level. Will order EKG for monitoring. Monitor for medication response and adverse drug reactions. Discharge planning in progress. Justification for Cont. Inpt. At risk for further decompensation if at lower level of care Arjun Carrillo MD Nov 30, 2016 16:42
[2016-11-30] MEDS: INSULIN ASPART SUPPLEMENTAL SCALE SQ SCH ×2 (17:00→20:29)
[2016-11-30 17:46] VITALS: BP 108/97; PULSE 67; RESP 18; TEMP 98.3; O2SAT 99
[2016-11-30] MEDS: INSULIN DETEMIR 100 UNITS/ML VIAL SQ SCH (20:31)
[2016-11-30] MEDS: TRIHEXYPHENIDYL HCL 5 MG TAB PO SCH (20:35)
[2016-11-30] MEDS: DOCUSATE SODIUM 50 MG/SENNA 8.6 MG TAB PO SCH (20:35)
[2016-12-01] MEDS: LEVOTHYROXINE SODIUM 125 MCG TAB PO SCH (03:57)
[2016-12-01 06:01] VITALS: BP 154/77; PULSE 77; RESP 16; TEMP 97.4; O2SAT 96
--- NOTE | 2016-12-01 07:47 | EKG ---
Date Performed: 11/30/2016 Time Performed: 18:43:52 PTAGE: 46 years EKG: Sinus rhythm BORDERLINE LEFT AXIS DEVIATION BORDERLINE ECG NO PREVIOUS TRACING DOCTOR: Lilia Vargas Interpretating Date/Time 12/01/2016 07:45:37
[2016-12-01] MEDS: INSULIN ASPART SUPPLEMENTAL SCALE SQ SCH ×4 (08:00→19:57)
[2016-12-01] MEDS: PANTOPRAZOLE SOD 20 MG DELAYED RELEASE TAB PO SCH (08:20)
[2016-12-01] MEDS: SERTRALINE HCL 100 MG TAB PO SCH (08:20)
[2016-12-01] MEDS: POLYETHYLENE GLYCOL 17 GM PKG PO SCH (08:20)
[2016-12-01] MEDS: cloZAPine 100 MG TAB PO SCH ×2 (08:20→20:55)
[2016-12-01] MEDS: GLIMEPIRIDE 2 MG TAB PO SCH (08:20)
[2016-12-01] MEDS: DOCUSATE SODIUM 50 MG/SENNA 8.6 MG TAB PO SCH ×2 (08:20→20:55)
[2016-12-01] MEDS: LIOTHYRONINE SODIUM 25 MCG TAB PO SCH (08:21)
[2016-12-01] MEDS: CHOLECALCIFEROL (VIT D3) 5000 UNIT CAP PO SCH (08:21)
[2016-12-01] MEDS ORDERED: INFLUENZA VIRUS VACCINE (QUADRIVALENT) 0.5 ML SYR IM ONE (10:00)
--- NOTE | 2016-12-01 10:57 | RADRPT ---
EXAM DATE/TIME: 12/01/2016 08:40 [place] COMPARISON: No previous studies available for comparison. [facility], US LIVER, November 03, 2016 INDICATIONS : Abnormal labs. MEDICAL HISTORY : Hypercholesterolemia. Thyroid disease. Migraines. GERD. Diabetes. Liver disease. Schizophrenia. SURGICAL HISTORY : None. ENCOUNTER: Initial ACUITY: 1 day PAIN SCORE: 0/10 LOCATION: Bilateral upper quadrant MEASUREMENTS: LIVER: 19.1 cm length COMMON DUCT: 3 mm RIGHT KIDNEY: 10.6 x 5.4 x 4.1 cm SPLEEN: 12.7 cm length FINDINGS: LIVER: Diffuse fatty infiltration of the liver. Portions of the liver are obscured due to patient body habit us and hyperattenuating parenchyma. 1.5 x 0.8 x 0.6 cm oval hypodensity likely representing a cyst is again seen in the left lobe. It measures slightly larger than on the comparison [facility] study of 11/03/2016 on the transverse image but this may be due to technical factors. COMMON DUCT: No intraluminal mass or stone visualized. GALLBLADDER: Contains no stones, demonstrates no wall thickening or pericholecystic fluid. PANCREAS: The visualized portions are within normal limits. RIGHT KIDNEY: No hydronephrosis, stone or mass. SPLEEN: No focal lesion. CONCLUSION: 1. Hepatic steatosis again seen. 1.5 cm left lobe hepatic lesion likely are presenting a cyst is slightly more prominent than on the c omparison palpation study. 2. Borderline splenomegaly unchanged. Andre Montemayor MD on December 01, 2016 at 10:50 Board Certified Radiologist. This report was verified electronically.
--- NOTE | 2016-12-01 15:29 | HHI.PYPN ---
Subjective Remarks Patient seen for follow-up, chart reviewed. Patient found sitting in day room speaking with occupational therapist noted recall cooperative interview. Patient states that she continues to have auditory hallucinations and continued to be as intense. Patient mentions that she's had auditory hallucinations in the past which had never gone away but has gotten to the point where she is able to tolerate them in the past. She states her mood is "calmer" but continues to be worried about and fear about if her family. She reports improved sleep and appetite although continues to have decreased energy and concentration. Patient also mentions he is worried about being able to return back home once discharged. Review of Systems Except as stated in HPI: all other systems reviewed are Neg Objective Alert: Yes [place]: Person, Place Mood: Other ("calmer") Affect: Appropriate Memory Intact: Immediate, Recent, Remote Hallucinations: Auditory (command auditory hallucination to kill herself) Delusions: Yes Delusion Type: Paranoid Suicidal: Ideation (currently endorsing) Homicidal: Ideation (denies) Insight/Judgment Limited insight, fair impulse control and judgment Labs Labs reviewed. Test 12/01/16 09:37 Hepatitis A IgM Antibody NEGATIVE Hepatitis B Surface Antigen NEGATIVE Hepatitis B Core IgM Antibody NEGATIVE Hepatitis C Antibody NEGATIVE Vitals/IOs Vital Signs Date Time Temp Pulse Resp B/P (MAP) Pulse Ox O2 Delivery O2 Flow Rate FiO2 12/01/16 06:01 97.4 77 16 154/77 (102) 96 11/29/16 14:15 Room Air Assessment & Plan Problem List: (1) Schizophrenia, paranoid, chronic ICD Codes: F20.0 - Paranoid schizophrenia Assessment & Plan Patient is time continues to have perceptual disturbances continues to be just as intense. Patient reports improved mood continues to be paranoid and perseverative about and abandonment. Clozaril levels ordered yesterday who pending results. We will increase Clozaril to 250 mg a.m. and 200 mg at bedtime. Continue rest of medications committed to monitor medication response and adverse drug reactions. Discharge planning in progress Justification for Cont. Inpt. At risk for further decompensation if at lower level of care Arjun Carrillo MD Dec 01, 2016 15:29
[2016-12-01 16:00] VITALS: BP 140/66; PULSE 90; RESP 18; TEMP 98.1; O2SAT 97
[2016-12-01] MEDS: TRIHEXYPHENIDYL HCL 5 MG TAB PO SCH (20:54)
[2016-12-01] MEDS: INSULIN DETEMIR 100 UNITS/ML VIAL SQ SCH (20:55)
[2016-12-02] MEDS: LORazepam 1 MG TAB PO PRN (00:24)
[2016-12-02] MEDS: LEVOTHYROXINE SODIUM 125 MCG TAB PO SCH (06:03)
[2016-12-02 06:04] VITALS: BP 142/86; PULSE 80; RESP 16; TEMP 97.7; O2SAT 98
[2016-12-02] MEDS: INSULIN ASPART SUPPLEMENTAL SCALE SQ SCH ×4 (08:00→20:49)
[2016-12-02] MEDS: DOCUSATE SODIUM 50 MG/SENNA 8.6 MG TAB PO SCH ×2 (08:29→20:20)
[2016-12-02] MEDS: SERTRALINE HCL 100 MG TAB PO SCH (08:30)
[2016-12-02] MEDS: CHOLECALCIFEROL (VIT D3) 5000 UNIT CAP PO SCH (08:30)
[2016-12-02] MEDS: cloZAPine 100 MG TAB PO SCH ×2 (08:30→20:20)
[2016-12-02] MEDS: GLIMEPIRIDE 2 MG TAB PO SCH (08:30)
[2016-12-02] MEDS: PANTOPRAZOLE SOD 20 MG DELAYED RELEASE TAB PO SCH (08:31)
[2016-12-02] MEDS: POLYETHYLENE GLYCOL 17 GM PKG PO SCH (08:31)
[2016-12-02] MEDS: LIOTHYRONINE SODIUM 25 MCG TAB PO SCH (08:31)
[2016-12-02] MEDS ORDERED: cloZAPine 25 MG TAB PO SCH (09:00)
[2016-12-02] MEDS: metFORMIN HCL 500 MG TAB PO SCH (17:23)
[2016-12-02 17:59] VITALS: BP 127/76; PULSE 80; RESP 19; TEMP 98.3; O2SAT 95
[2016-12-02] MEDS: TRIHEXYPHENIDYL HCL 5 MG TAB PO SCH (20:20)
[2016-12-02] MEDS: INSULIN DETEMIR 100 UNITS/ML VIAL SQ SCH (20:50)
--- NOTE | 2016-12-02 22:49 | HHI.PYPN ---
Subjective Remarks Patient seen for follow up; chart reviewed. Patient found lying on hospital bed asleep but able to wake up for interview. She states that she is "still a little paranoid of dying" but that feeling better. She states that the AH are less now saying "you know its going to happen". she rates intensity as 5/10 and less frequent. She reports having attended groups. Currenlty denies any SI. Review of Systems Except as stated in HPI: all other systems reviewed are Neg Objective Alert: Yes [place]: Person, Place Mood: Other ("better") Affect: Appropriate Memory Intact: Immediate, Recent, Remote Hallucinations: Auditory Delusions: Yes Delusion Type: Paranoid Suicidal: Ideation (currently endorsing) Homicidal: Ideation (denies) Insight/Judgment Fair insight, impulse control and judgment Vitals/IOs Vital Signs Date Time Temp Pulse Resp B/P (MAP) Pulse Ox O2 Delivery O2 Flow Rate FiO2 12/02/16 17:59 98.3 80 19 127/76 (93) 95 11/29/16 14:15 Room Air Assessment & Plan Problem List: (1) Schizophrenia, paranoid, chronic ICD Codes: F20.0 - Paranoid schizophrenia Assessment & Plan Patient with improvement of positive symptoms. Will increase Clozaril to 250mg PO BID. Continue rest of medications. Discharge planning in progress. Justification for Cont. Inpt. At risk for further decompensation if at lower level of care. Arjun Carrillo MD Dec 02, 2016 22:49
[2016-12-02 22:56] LABS: CLOZAPINE/NORCLOZAPINE TOTAL 698 ng/mL (>450); NORCLOZAPINE 223 ng/mL
[2016-12-03] MEDS: LEVOTHYROXINE SODIUM 125 MCG TAB PO SCH (05:26)
[2016-12-03 06:14] VITALS: BP 138/65; PULSE 73; RESP 18; TEMP 97.8; O2SAT 95
[2016-12-03] MEDS: INSULIN ASPART SUPPLEMENTAL SCALE SQ SCH ×5 (07:45→21:00)
[2016-12-03] MEDS ORDERED: GLIMEPIRIDE 2 MG TAB PO SCH (09:00)
[2016-12-03] MEDS: PANTOPRAZOLE SOD 20 MG DELAYED RELEASE TAB PO SCH (09:00)
[2016-12-03] MEDS: SERTRALINE HCL 100 MG TAB PO SCH (09:00)
[2016-12-03] MEDS: GLIMEPIRIDE 2 MG TAB PO SCH (09:01)
[2016-12-03] MEDS: metFORMIN HCL 500 MG TAB PO SCH ×2 (09:02→18:07)
[2016-12-03] MEDS: cloZAPine 100 MG TAB PO SCH ×2 (09:02→20:18)
[2016-12-03] MEDS: LIOTHYRONINE SODIUM 25 MCG TAB PO SCH (09:02)
[2016-12-03] MEDS: DOCUSATE SODIUM 50 MG/SENNA 8.6 MG TAB PO SCH ×2 (09:02→20:18)
[2016-12-03] MEDS: POLYETHYLENE GLYCOL 17 GM PKG PO SCH (09:02)
[2016-12-03] MEDS: CHOLECALCIFEROL (VIT D3) 5000 UNIT CAP PO SCH (09:02)
--- NOTE | 2016-12-03 10:08 | HHI.PR ---
Subjective Remarks Follow up on patient with hypothyroidism, IDDM, dyslipidemia, GERD. Patient seen and examined. Patient states she is doing well. Denies any new medical complaints. Discussed results of neg hep panel and liver US showing fatty liver. Discussed lifestyle modification, regular home exercise program. Will continue off statin. BS fairly well controlled. Patient to follow up with her PCP following discharge. Objective Vitals Vital Signs Date Time Temp Pulse Resp B/P (MAP) Pulse Ox O2 Delivery O2 Flow Rate FiO2 12/03/16 06:14 97.8 73 18 138/65 (89) 95 12/02/16 17:59 98.3 80 19 127/76 (93) 95 Result Diagram: 11/30/16 0915 11/30/16 0915 Imaging Last Impressions Liver Ultrasound 12/01/16 0000 Signed Impressions: Service Date/Time: , December 01, 2016 08:40 - CONCLUSION: 1. Hepatic steatosis again seen. 1.5 cm left lobe hepatic lesion likely are presenting a cyst is slightly more prominent than on the comparison palpation study. 2. Borderline splenomegaly unchanged. Andre Montemayor MD Objective Remarks GENERAL: This is a well-nourished, well-developed obese patient, in no apparent distress. Awake and alert. Lying in hospital bed. Appears comfortable. SKIN: Warm and dry. HEAD: Atraumatic. Normocephalic. EYES: Extraocular motions intact. No scleral icterus. No injection or drainage. ENT: Nose without bleeding or purulent drainage. Throat without erythema, tonsillar hypertrophy or exudate. Uvula midline. Airway patent. MMM. NECK: Trachea midline. Supple. CARDIOVASCULAR: Regular rate and rhythm without murmurs, gallops, or rubs. RESPIRATORY: Diminished but clear to auscultation. Breath sounds equal bilaterally. No wheezes, rales, or rhonchi. GASTROINTESTINAL: Abdomen soft, non-tender, nondistended. No hepato-splenomegaly , or palpable masses. No guarding. MUSCULOSKELETAL: Extremities without clubbing, cyanosis, or edema. No calf tenderness. NEUROLOGICAL: Awake and alert. Able to move all extremities. Nonfocal. Normal speech. PSYCHIATRIC: Affect flat, blunted. Medications and IVs Current Medications Medications (Trade) Dose Ordered Sig/Isra Route Start Time Stop Time Status Last Admin (Ativan) 1 mg Q6H PRN PO 11/29/16 12:00 12/02/16 00:24 (Ativan Inj) 1 mg Q6H PRN IM 11/29/16 12:00 (Benadryl) 50 mg Q6H PRN PO 11/29/16 12:00 (Benadryl Inj) 50 mg Q6H PRN IM 11/29/16 12:00 (Tylenol) 650 mg Q4H PRN PO 11/29/16 12:00 (Milk Of Magnesia Liq) 30 ml DAILY PRN PO 11/29/16 12:00 (Mag-Al Plus Susp Liq) 30 ml Q6H PRN PO 11/29/16 12:00 (Lipitor) 40 mg HS PO 11/29/16 21:00 Future Hold 11/29/16 21:34 (Levemir Inj) 40 units HS SQ 11/29/16 21:00 12/02/16 20:50 (Synthroid) 125 mcg DAILY@0600 PO 11/30/16 06:00 12/03/16 05:26 (Zoloft) 100 mg DAILY PO 11/30/16 09:00 12/03/16 09:00 (Artane) 5 mg HS PO 11/29/16 21:00 12/02/16 20:20 (Glucophage) 500 mg BIDPC PO 11/30/16 09:00 Future hold 12/03/16 09:02 (Protonix) 20 mg DAILY PO 11/30/16 09:00 12/03/16 09:00 (Cytomel) 25 mcg DAILY PO 12/01/16 09:00 12/03/16 09:02 (Vitamin D3) 5,000 units DAILY PO 12/01/16 09:00 12/03/16 09:02 (Miralax) 17 gm DAILY PO 12/01/16 09:00 12/03/16 09:02 (Elina-Colace) 1 tab BID PO 11/30/16 21:00 12/03/16 09:02 (D50w (Vial) Inj) 50 ml UNSCH PRN IV PUSH 11/30/16 16:15 (Glucagon Inj) 1 mg UNSCH PRN OTHER 11/30/16 16:15 (NovoLOG SUPPLEMENTAL SCALE) 1 ACHS SLIDING SCALE SQ 11/30/16 17:00 12/02/16 17:00 (Amaryl) 2 mg DAILYAC PO 12/03/16 08:00 12/03/16 09:01 (Clozaril) 250 mg BID PO 12/02/16 21:00 12/03/16 09:02 A/P Assessment and Plan 46yo female with a PMHX significant for hypothyroidism, IDDM, dyslipidemia, GERD , schizophrenia and depression who presented to the ED under [place] Act for suicidal ideation who has now been admitted to the inpatient psychiatric unit and Hospitalist services have been consulted for medical management. Schizophrenia Depression/suicidal ideation - Management per psychiatric team Insulin-dependent diabetes - HgbA1c 7.9 - Continue patient on Amaryl, metformin and Levemir 40 units daily - blood sugars below 200 - Accucheks - ISS - diabetic diet Hypothyroidism - continue patients home Levothyroxine 125mcg daily and Liothyronine 25mcg daily - TSH slightly outside of normal range - recommend follow-up with PCP in 6-8 weeks to recheck TSH level Transaminitis - continue to hold statin - hepatitis panel negative - liver US reviewed, fatty liver, likely left lobe cyst, borderline splenomegaly - discussed with patient lifestyle modification, healthy food choices, regular home exercise program - recommend follow up with PCP as outpatient to have LFTs rechecked in several weeks Dyslipidemia - statin therapy contraindicated at this time due to elevated LFTs - recommend patient follow up with PCP as outpatient to discuss restarting if lab values normalize or initiate alternative tx GERD - continue PPI Vitamin D deficiency - Continue patient on home dose of vitamin D supplementation Constipation - Elina colace BID - Miralax daily - monitor for BM Tobaccoism - Discussed smoking cessation DVT prophylaxis - patient is ambulatory Patient appears stable from hospitalist standpoint. Will sign off for now. Please reconsult if needed. Discussed with patient and Shannan Hunter Dec 03, 2016 10:08
[2016-12-03 18:28] VITALS: BP 133/87; PULSE 93; RESP 19; TEMP 97.7; O2SAT 98
--- NOTE | 2016-12-03 18:55 | HHI.PYPN ---
Subjective Remarks Patient was seen and case discussed with nursing. Patient remains bothered by persistent auditory hallucinations calling her Satan. She feels that somebody is controlling her. The voices are telling her to hurt herself but she is able to ignore them. She denies ideations intent or plan to do so. Largely seclusive to room. Behaving well on the unit Objective Alert: Yes [place]: Person, Place Mood: Other ("better") Affect: Appropriate Memory Intact: Immediate, Recent, Remote Hallucinations: Auditory (kill herself, that she is satan) Delusions: Yes Delusion Type: Paranoid Suicidal: Ideation (denies) Homicidal: Ideation (denies) Insight/Judgment Poor Vitals/IOs Vital Signs Date Time Temp Pulse Resp B/P (MAP) Pulse Ox O2 Delivery O2 Flow Rate FiO2 12/03/16 18:28 97.7 93 19 133/87 (102) 98 11/29/16 14:15 Room Air Assessment & Plan Problem List: (1) Schizophrenia, paranoid, chronic ICD Codes: F20.0 - Paranoid schizophrenia Assessment & Plan Continue current treatment plan Justification for Cont. Inpt. Patient would decompensate in a less restrictive setting Zeyad Anderson DO Dec 03, 2016 18:54
[2016-12-03] MEDS: TRIHEXYPHENIDYL HCL 5 MG TAB PO SCH (20:17)
[2016-12-03] MEDS: INSULIN DETEMIR 100 UNITS/ML VIAL SQ SCH (21:00)
[2016-12-04] MEDS: LEVOTHYROXINE SODIUM 125 MCG TAB PO SCH (05:53)
[2016-12-04 06:01] VITALS: BP 154/65; PULSE 85; RESP 18; TEMP 97.7; O2SAT 97
[2016-12-04] MEDS: INSULIN ASPART SUPPLEMENTAL SCALE SQ SCH ×4 (08:00→21:34)
[2016-12-04] MEDS: POLYETHYLENE GLYCOL 17 GM PKG PO SCH (09:31)
[2016-12-04] MEDS: PANTOPRAZOLE SOD 20 MG DELAYED RELEASE TAB PO SCH (09:31)
[2016-12-04] MEDS: LIOTHYRONINE SODIUM 25 MCG TAB PO SCH (09:31)
[2016-12-04] MEDS: DOCUSATE SODIUM 50 MG/SENNA 8.6 MG TAB PO SCH ×2 (09:31→20:38)
[2016-12-04] MEDS: cloZAPine 100 MG TAB PO SCH ×2 (09:32→20:39)
[2016-12-04] MEDS: metFORMIN HCL 500 MG TAB PO SCH ×2 (09:32→18:00)
[2016-12-04] MEDS: SERTRALINE HCL 100 MG TAB PO SCH (09:32)
[2016-12-04] MEDS: GLIMEPIRIDE 2 MG TAB PO SCH (09:32)
[2016-12-04] MEDS: CHOLECALCIFEROL (VIT D3) 5000 UNIT CAP PO SCH (09:32)
--- NOTE | 2016-12-04 11:16 | HHI.PYPN ---
Subjective Remarks Patient was seen and case discussed with nursing. Patient describes her voices today is "not as bad." However, they remain bothersome at present. They're telling her that she is evil and going to . We discussed an increase in Clozaril dosing and her latest ANC is good. She denies suicidal or homicidal ideation intent or plan Objective Alert: Yes [place]: Person, Place Mood: Other ("better") Affect: Appropriate Memory Intact: Immediate, Recent, Remote Hallucinations: Auditory (kill herself, that she is satan) Delusions: Yes Delusion Type: Paranoid Suicidal: Ideation (denies) Homicidal: Ideation (denies) Insight/Judgment Poor Vitals/IOs Vital Signs Date Time Temp Pulse Resp B/P (MAP) Pulse Ox O2 Delivery O2 Flow Rate FiO2 12/04/16 06:01 97.7 85 18 154/65 (94) 97 Assessment & Plan Problem List: (1) Schizophrenia, paranoid, chronic ICD Codes: F20.0 - Paranoid schizophrenia Assessment & Plan Increase Clozaril to 300 mg by mouth twice a day Justification for Cont. Inpt. Patient will decompensate in a less restrictive setting Zeyad Anderson DO Dec 04, 2016 11:16
[2016-12-04 17:48] VITALS: BP 146/77; PULSE 99; RESP 17; TEMP 98.5; O2SAT 99
[2016-12-04] MEDS: TRIHEXYPHENIDYL HCL 5 MG TAB PO SCH (20:38)
[2016-12-04] MEDS: INSULIN DETEMIR 100 UNITS/ML VIAL SQ SCH (21:34)
[2016-12-05] MEDS: LEVOTHYROXINE SODIUM 125 MCG TAB PO SCH (05:48)
[2016-12-05 06:32] VITALS: BP 103/65; PULSE 84; RESP 16; TEMP 97; O2SAT 94
[2016-12-05] MEDS: INSULIN ASPART SUPPLEMENTAL SCALE SQ SCH ×4 (08:00→21:00)
[2016-12-05] MEDS: POLYETHYLENE GLYCOL 17 GM PKG PO SCH (08:19)
[2016-12-05] MEDS: CHOLECALCIFEROL (VIT D3) 5000 UNIT CAP PO SCH (08:20)
[2016-12-05] MEDS: DOCUSATE SODIUM 50 MG/SENNA 8.6 MG TAB PO SCH ×2 (08:20→21:00)
[2016-12-05] MEDS: PANTOPRAZOLE SOD 20 MG DELAYED RELEASE TAB PO SCH (08:20)
[2016-12-05] MEDS: GLIMEPIRIDE 2 MG TAB PO SCH (08:20)
[2016-12-05] MEDS: metFORMIN HCL 500 MG TAB PO SCH ×2 (08:20→17:55)
[2016-12-05] MEDS: cloZAPine 100 MG TAB PO SCH ×2 (08:20→21:00)
[2016-12-05] MEDS: LIOTHYRONINE SODIUM 25 MCG TAB PO SCH (08:21)
[2016-12-05] MEDS: SERTRALINE HCL 100 MG TAB PO SCH (09:00)
--- NOTE | 2016-12-05 16:03 | HHI.PYPN ---
Subjective Remarks Patient seen for follow-up, chart reviewed. Patient found participating in groups, calm and cooperative with interview. Patient states that she has been feeling scared about how the voices are gonig to be after she's discharged. She states that she continues to have the voices but are less intense; 6/10 ( previously 8-9/10). She states that the voices still tell her "you're going to ". She reports "before the voices made me feel like hurting myself, now they just make me sad". She reports sleeping well, eating and drinking well, but has not had a bowel movement since last week despite taking miralax. At this time she denies SI, HI, AVH or delusions. Review of Systems Except as stated in HPI: all other systems reviewed are Neg Objective Alert: Yes [place]: Person, Place Mood: Other ("scared") Affect: Appropriate Memory Intact: Immediate, Recent, Remote Hallucinations: Auditory ("you're going to ") Delusions: Yes Delusion Type: Paranoid Suicidal: Ideation (denies) Homicidal: Ideation (denies) Insight/Judgment limited insight, fair impulse control and judgment Vitals/IOs Vital Signs Date Time Temp Pulse Resp B/P (MAP) Pulse Ox O2 Delivery O2 Flow Rate FiO2 12/05/16 06:32 97.0 84 16 103/65 (78) 94 Assessment & Plan Problem List: (1) Schizophrenia, paranoid, chronic ICD Codes: F20.0 - Paranoid schizophrenia Assessment & Plan Patient continues to endorse AH which tell her negative comments with occasional command type to kill herself. She reports less intensity. Continue with recent increase of clozapine. Monitor for medication response and ADRs. Discharge planning in progress. Justification for Cont. Inpt. At risk for further decompensation if at lower level of care. Arjun Carrillo MD Dec 05, 2016 16:03
[2016-12-05 17:54] VITALS: BP 130/68; PULSE 91; RESP 20; TEMP 97.5; O2SAT 96
[2016-12-05] MEDS: TRIHEXYPHENIDYL HCL 5 MG TAB PO SCH (21:00)
[2016-12-05] MEDS: MAGNESIUM HYDROXIDE SUSP 30 ML CUP PO PRN (21:00)
[2016-12-05] MEDS: INSULIN DETEMIR 100 UNITS/ML VIAL SQ SCH (21:00)
[2016-12-06 06:36] VITALS: BP 126/78; PULSE 62; RESP 18; TEMP 97.6; O2SAT 96
[2016-12-06] MEDS: INSULIN ASPART SUPPLEMENTAL SCALE SQ SCH ×4 (08:00→21:00)
[2016-12-06] MEDS: POLYETHYLENE GLYCOL 17 GM PKG PO SCH (08:58)
[2016-12-06] MEDS: GLIMEPIRIDE 2 MG TAB PO SCH (08:59)
[2016-12-06] MEDS: DOCUSATE SODIUM 50 MG/SENNA 8.6 MG TAB PO SCH ×2 (08:59→21:11)
[2016-12-06] MEDS: CHOLECALCIFEROL (VIT D3) 5000 UNIT CAP PO SCH (09:00)
[2016-12-06] MEDS: LIOTHYRONINE SODIUM 25 MCG TAB PO SCH (09:00)
[2016-12-06] MEDS: SERTRALINE HCL 100 MG TAB PO SCH (09:00)
[2016-12-06] MEDS: PANTOPRAZOLE SOD 20 MG DELAYED RELEASE TAB PO SCH (09:00)
[2016-12-06] MEDS: cloZAPine 100 MG TAB PO SCH ×2 (09:00→21:11)
[2016-12-06] MEDS: metFORMIN HCL 500 MG TAB PO SCH ×2 (09:01→17:42)
--- NOTE | 2016-12-06 16:15 | HHI.PYPN ---
Subjective Remarks Patient seen for follow-up, chart reviewed. Patient found sitting in day room. She states that she been feeling "better today", stating that the voices are acquisition analyst, feels having "happy perspective" and tolerating medications ok. She states that today it has been "manageable" but cotinues to bother her at times. Review of Systems Except as stated in HPI: all other systems reviewed are Neg Objective Alert: Yes [place]: Person, Place Mood: Calm Affect: Appropriate Memory Intact: Immediate, Recent, Remote Hallucinations: Auditory Delusions: Yes Delusion Type: Paranoid (less so today) Suicidal: Ideation (denies) Homicidal: Ideation (denies) Insight/Judgment Limited insight impulse control and judgment Vitals/IOs Vital Signs Date Time Temp Pulse Resp B/P (MAP) Pulse Ox O2 Delivery O2 Flow Rate FiO2 12/06/16 06:36 97.6 62 18 126/78 (94) 96 Intake and Output 12/06/16 12/06/16 12/07/16 08:00 16:00 00:00 Intake Total 240 ml Balance 240 ml Assessment & Plan Problem List: (1) Schizophrenia, paranoid, chronic ICD Codes: F20.0 - Paranoid schizophrenia Assessment & Plan Patient noted to have improvement of AH but continues to bothersome. Will increase clozapine to 300mg daily and 350mg HS. Monitor for medication response and ADRs, discharge planning in progress. Justification for Cont. Inpt. At risk for further decompensation if at lower level of care. Arjun Carrillo MD Dec 06, 2016 16:15
[2016-12-06] MEDS: MAGNESIUM HYDROXIDE SUSP 30 ML CUP PO PRN (17:49)
[2016-12-06 18:11] VITALS: BP 170/91; PULSE 92; RESP 17; TEMP 98.1; O2SAT 97
[2016-12-06] MEDS: INSULIN DETEMIR 100 UNITS/ML VIAL SQ SCH (21:11)
[2016-12-06] MEDS: TRIHEXYPHENIDYL HCL 5 MG TAB PO SCH (21:12)
[2016-12-06] MEDS: cloZAPine 25 MG TAB PO SCH (21:12)
[2016-12-07 05:32] VITALS: BP 140/74; PULSE 91; RESP 18; TEMP 98.2
[2016-12-07] MEDS: LEVOTHYROXINE SODIUM 125 MCG TAB PO SCH (05:41)
[2016-12-07] MEDS: INSULIN ASPART SUPPLEMENTAL SCALE SQ SCH ×4 (07:26→20:11)
[2016-12-07] MEDS: PANTOPRAZOLE SOD 20 MG DELAYED RELEASE TAB PO SCH (08:12)
[2016-12-07] MEDS: cloZAPine 100 MG TAB PO SCH ×2 (08:12→20:45)
[2016-12-07] MEDS: SERTRALINE HCL 100 MG TAB PO SCH (08:12)
[2016-12-07] MEDS: metFORMIN HCL 500 MG TAB PO SCH ×2 (08:12→17:45)
[2016-12-07] MEDS: GLIMEPIRIDE 2 MG TAB PO SCH (08:12)
[2016-12-07] MEDS: DOCUSATE SODIUM 50 MG/SENNA 8.6 MG TAB PO SCH ×2 (08:13→20:44)
[2016-12-07] MEDS: CHOLECALCIFEROL (VIT D3) 5000 UNIT CAP PO SCH (08:13)
[2016-12-07] MEDS: LIOTHYRONINE SODIUM 25 MCG TAB PO SCH (08:13)
[2016-12-07] MEDS: POLYETHYLENE GLYCOL 17 GM PKG PO SCH (08:14)
[2016-12-07 11:09] LABS: AUTOMATED NEUTROPHIL # 7.1 TH/MM3 (1.8-7.7); BASOPHIL # 0.1 TH/MM3 (0-0.2); BASOPHIL % 0.8 % (0.0-2.0); EOSINOPHIL # 0.3 TH/MM3 (0-0.4); EOSINOPHIL % 3.5 % (0.0-4.0); HEMATOCRIT 37.7 % (35.0-46.0); HEMO FLAGS DIFF FINAL; LYMPH % 17.2 % (9.0-44.0); LYMPHOCYTE # 1.7 TH/MM3 (1.0-4.8); MEAN CELL VOLUME 88.2 FL (80.0-100.0); MEAN CORPUSCULAR HEMOGLOBIN 29.5 PG (27.0-34.0); MEAN CORPUSCULAR HGB CONC 33.5 % (32.0-36.0); MONO % 5.8 % (0.0-8.0); NEUT % 72.7 % (16.0-70.0); PLATELET COUNT 234 TH/MM3 (150-450); RED BLOOD COUNT 4.28 MIL/MM3 (4.00-5.30); RED CELL DISTRIBUTION WIDTH 14.2 % (11.6-17.2); WHITE BLOOD COUNT 9.8 TH/MM3 (4.0-11.0)
--- NOTE | 2016-12-07 16:02 | HHI.PYPN ---
Subjective Remarks Patient seen for follow up, chart reviewed. Patient found sitting in hospital bed, cooperative interview today. Patient states that he is feeling "okay" and reports that the auditory hallucinations are still there but lasting much less time which he hears it and no longer is continuous. She states that he continues saying negative things but denied command her to hurt herself or others. Patient states that she is now able to ignore the voices and continue with her activities during the day. She feels that she is able to manage the auditory hallucinations as he had never been completely absent since her diagnosis. Patient states feeling much better and ready to go home. Patient denies any SI or HI or delusions. Review of Systems Except as stated in HPI: all other systems reviewed are Neg Mental Status Examination Consciousness: Alert Appearance: Appropriate Speech: Unremarkable Orientation: x3 Memory: Unremarkable Thought Content: Goal directed, Linear Thought Associations: Intact Language: Other (fluent and spontaneous) Fund of Knowledge: Average Hallucination Type: Auditory (continues to endorse but now more sporadic and less duration; no longer command type) Attention and Concentration: Good, Abnormal Suicidal Ideation: No Previous Suicide Attempts: No Homicidal Ideation: No Previous Homicide Attempts: No Insight: Fair Judgment: Adequate Affect: Euthymic Mood: Euthymic, Anxious Motor Activity: Normal gait Results Labs Test 12/07/16 10:04 White Blood Count 9.8 TH/MM3 Red Blood Count 4.28 MIL/MM3 Hemoglobin 12.6 GM/DL Hematocrit 37.7 % Mean Corpuscular Volume 88.2 FL Mean Corpuscular Hemoglobin 29.5 PG Mean Corpuscular Hemoglobin Concent 33.5 % Red Cell Distribution Width 14.2 % Platelet Count 234 TH/MM3 Mean Platelet Volume 10.1 FL Neutrophils (%) (Auto) 72.7 % Lymphocytes (%) (Auto) 17.2 % Monocytes (%) (Auto) 5.8 % Eosinophils (%) (Auto) 3.5 % Basophils (%) (Auto) 0.8 % Neutrophils # (Auto) 7.1 TH/MM3 Lymphocytes # (Auto) 1.7 TH/MM3 Monocytes # (Auto) 0.6 TH/MM3 Eosinophils # (Auto) 0.3 TH/MM3 Basophils # (Auto) 0.1 TH/MM3 CBC Comment DIFF FINAL Differential Comment Vitals/IOs Vital Signs Date Time Temp Pulse Resp B/P (MAP) Pulse Ox O2 Delivery O2 Flow Rate FiO2 12/07/16 05:32 98.2 91 18 140/74 (96) 12/06/16 18:11 97 Assessment & Plan Problem List: (1) Schizophrenia, paranoid, chronic ICD Codes: F20.0 - Paranoid schizophrenia Assessment & Plan Patient this time appears to be responding to current treatment with noted to decrease in intensity duration and content of auditory hallucinations. She reports feeling able to manage residual auditory hallucinations and wanting to go home. Continue current treatment. Patient likely will be able to return back to her residence tomorrow. Discharge planning in progress Justification for Cont. Inpt. At risk for further decompensation if at lower level of care Arjun Carrillo MD Dec 07, 2016 16:02
--- NOTE | 2016-12-07 16:25 | PD.TTN ---
Patient Problems 1. Discharge planning 2. Medication compliance 3. Knowledge deficit 4. Lack of coping skills Progress Toward Goals Provider Present: Dr. Florencia Carrillo Provider Input: Patient is tolerating medications and stating that the voices are decreasing. Psychiatric Counselors Present: ADALBERTO Raines Psych Therapist Input: Patient is doing well on the unit and is complient with medications. Patient is able to return back to halfway once stablized. Viry SerranoMarilee Dec 07, 2016 16:25
[2016-12-07 17:00] VITALS: BP 136/68; PULSE 97; RESP 17; TEMP 98.1; O2SAT 97
[2016-12-07] MEDS: INSULIN DETEMIR 100 UNITS/ML VIAL SQ SCH (20:12)
[2016-12-07] MEDS: cloZAPine 25 MG TAB PO SCH (20:44)
[2016-12-07] MEDS: TRIHEXYPHENIDYL HCL 5 MG TAB PO SCH (20:44)
[2016-12-08] MEDS: LEVOTHYROXINE SODIUM 125 MCG TAB PO SCH (05:09)
[2016-12-08 05:36] VITALS: BP 112/69; PULSE 88; RESP 18; TEMP 97.7; O2SAT 94
[2016-12-08] MEDS: INSULIN ASPART SUPPLEMENTAL SCALE SQ SCH ×3 (08:00→16:54)
[2016-12-08] MEDS: LIOTHYRONINE SODIUM 25 MCG TAB PO SCH (09:06)
[2016-12-08] MEDS: SERTRALINE HCL 100 MG TAB PO SCH (09:06)
[2016-12-08] MEDS: DOCUSATE SODIUM 50 MG/SENNA 8.6 MG TAB PO SCH (09:06)
[2016-12-08] MEDS: CHOLECALCIFEROL (VIT D3) 5000 UNIT CAP PO SCH (09:06)
[2016-12-08] MEDS: GLIMEPIRIDE 2 MG TAB PO SCH (09:06)
[2016-12-08] MEDS: POLYETHYLENE GLYCOL 17 GM PKG PO SCH (09:07)
[2016-12-08] MEDS: metFORMIN HCL 500 MG TAB PO SCH ×2 (09:07→18:00)
[2016-12-08] MEDS: cloZAPine 100 MG TAB PO SCH (09:07)
[2016-12-08] MEDS: PANTOPRAZOLE SOD 20 MG DELAYED RELEASE TAB PO SCH (09:08)
[2016-12-08] MEDS ORDERED: AMAR2TAB PO (12:47)
[2016-12-08] MEDS ORDERED: LEVEMIR SQ (12:47)
[2016-12-08] MEDS ORDERED: CYTO25TA PO (12:47)
[2016-12-08] MEDS ORDERED: CHOL5000 PO (12:47)
[2016-12-08] MEDS ORDERED: TRIH5TAB2 PO (12:47)
[2016-12-08] MEDS ORDERED: PANT20 PO (12:47)
[2016-12-08] MEDS ORDERED: CLOZ50TA PO (12:47)
[2016-12-08] MEDS ORDERED: ZOLO100T PO (12:47)
[2016-12-08] MEDS ORDERED: LEVO.125 PO (12:47)
[2016-12-08] MEDS ORDERED: METF500 PO (12:47)
[2016-12-08] MEDS ORDERED: CLOZ100 PO (12:47)
[2016-12-08] MEDS ORDERED: SENN1TAB PO (12:47)
[2016-12-08] MEDS ORDERED: POLY17S PO (12:47)
--- NOTE | 2016-12-08 12:47 | HHI.DS ---
Psychiatry Discharge Summary Inpatient Psychiatric care?: Yes Advance Directive: No Reason Not Provided: DOES NOT HAVE Mental Health AdvanceDirective: No Health Care Proxy: No Admission Admission Date Nov 29, 2016 at 11:57 Admission Diagnosis: (1) Schizophrenia, paranoid, chronic ICD Code: F20.0 - Paranoid schizophrenia Brief History This is a 46-year-old female who was Rose acted after informing law enforcement that she was hearing voices telling her to kill herself. The patient apparently has been experiencing auditory hallucinations more frequently over the last several weeks. She resides in a [facility] in [facility] and she is no longer able to tolerate these auditory hallucinations. The patient is not a good historian as she is currently responding to internal stimuli. She is rocking back and forth and exhibits thought blocking as well as self admitted auditory hallucinations. Patient is very disturbed by these hallucinations and does not feel she can resist the urge to harm or kill herself. She does state that she has been taking her prescribed medication, which includes Clozaril. 150 mg twice a day as well as Zoloft 100 mg daily. Obviously, the patient's Clozaril is not working and her psychosis is unmanageable. Patient also feels paranoid and unsafe in her mcc. She has a suicidal plan of overdosing on her medicines. She denies the use of alcohol or drugs. Tobacco Use In Past 30 Days: 5 or More Cigarettes/Day Alcohol Use: Never Hospital Course Patient is a 46-year-old woman, domiciled in the mcc for about a year, unemployed, with past psychiatric history of schizophrenia, multiple psychiatric hospitalizations, 4 previous suicide attempts (last in January 2014 via overdose), history of remote polysubstance use, was brought under Rose act by police for command auditory hallucinations to kill herself. Patient was admitted to the inpatient psychiatric unit for further evaluation and management. Patient was kept on clozaril and titrated up to 300mg PO AM/ 350mg PO HS, sertraline 100mg PO daily and trihexiphenadyl 5mg PO HS which she tolerated well. Patient was noted to be with improved mood, continued to have AH but were now minimal and was able to ignore them, and no longer command type ; cooperative with staff. Upon discharge, patient denied any SI, HI, AVH or delusions. She agrees to continue treatment and outpatient follow up for continuity of care. Supportive psychotherapy provided. I have counseled the patient regarding warning signs for need to return to the psychiatric emergency room as part of a general safety plan. Results Blood Pressure 112 / 69 Vital Signs Date Time Temp Pulse Resp B/P (MAP) Pulse Ox O2 Delivery O2 Flow Rate FiO2 12/08/16 05:36 97.7 88 18 112/69 (83) 94 Laboratory Tests Test 12/07/16 10:04 Neutrophils (%) (Auto) 72.7 % (16.0-70.0) Laboratory Results Test 11/30/16 09:15 Cholesterol Level 213 MG/DL (120-200) HDL Cholesterol 45.2 MG/DL (40.0-60.0) Hemoglobin A1c 7.9 % (4.3-6.0) LDL Cholesterol 118 MG/DL (0-99) Triglycerides Level 250 MG/DL (42-150) Summary of Procedures none Imaging Last Impressions Liver Ultrasound 12/01/16 0000 Signed Impressions: Service Date/Time: November 08:40 - CONCLUSION: 1. Hepatic steatosis again seen. 1.5 cm left lobe hepatic lesion likely are presenting a cyst is slightly more prominent than on the comparison palpation study. 2. Borderline splenomegaly unchanged. Andre Montemayor MD Pending results at discharge: No Medications # of Antipsychotic meds at D/C: 1 Approp Antipsych med options 1 - Minimum of three failed multiple trials of monotherapy. 2 - Documented plan to taper to monotherapy due to previous use of multiple meds OR cross-taper in progress at D/C. 3 - Documentation of augmentation of Clozapine. 4 - Justification other than those listed in allowable values 1-3, document here : Discharge Discharge Date: Dec 08, 2016 Discharge Diagnosis: (1) Schizophrenia, paranoid, chronic Diagnosis: Principal ICD Code: F20.0 - Paranoid schizophrenia Pt Condition on Discharge: Stable Discharge Disposition: ACLF/FCI Discharge Instructions Diet Instructions: Heart Healthy Diet Activities you can perform: Regular-No Restrictions Discharge Time > 30 minutes Mental Status Examination Consciousness: Alert Appearance: Appropriate Speech: Unremarkable Orientation: x3 Memory: Unremarkable Thought Content: Goal directed, Linear Thought Associations: Intact Language: Other (fluent and spontaneous) Fund of Knowledge: Average Hallucination Type: Auditory (minimal) Attention and Concentration: Good Suicidal Ideation: No Previous Suicide Attempts: No Homicidal Ideation: No Previous Homicide Attempts: No Insight: Fair Judgment: Adequate Affect: Euthymic Mood: Euthymic, Anxious Motor Activity: Normal gait Discharge/Advance Care Plan Health Problems: (1) Schizophrenia, paranoid, chronic Goals to promote your health * To prevent worsening of your condition and complications * To maintain your health at the optimal level Directions to meet your goals Take your medications as prescribed Follow your dietary instruction Follow activity as directed Keep your appointments as scheduled Take your immunizations and boosters as scheduled If your symptoms worsen call your PCP, if no PCP go to Urgent Care Center or Emergency Room For 26/09 questions related to your inpatient stay or results of tests pending at discharge, please contact Dr. Arjun Carrillo at Smoking is Dangerous to Your Health. Avoid second hand smoking Arjun Carrillo MD Dec 08, 2016 12:47
== END 2016-12-08 18:10 | DRG 885 ==
LOC: NEDAMB 15:24 → NEDA 11-29 11:57 → H270 11-29 18:00 → H260 12-04 08:05
PROVIDERS: ADMIT Student in an Organized Health Care Education/Training Program; ATTEND Student in an Organized Health Care Education/Training Program
DX: F20.0 Paranoid schizophrenia (principal); E11.9 Type 2 diabetes mellitus without complications; Z79.4 Long term (current) use of insulin; Z79.84 Long term (current) use of oral hypoglycemic drugs; R74.0 Nonspecific elevation of levels of transaminase and lactic acid dehydrogenase [LDH]; K76.0 Fatty (change of) liver, not elsewhere classified; E55.9 Vitamin D deficiency, unspecified; E03.9 Hypothyroidism, unspecified; K21.9 Gastro-esophageal reflux disease without esophagitis; E78.5 Hyperlipidemia, unspecified; F17.210 Nicotine dependence, cigarettes, uncomplicated; K59.00 Constipation, unspecified; Z23 Encounter for immunization
CPT/HCPCS: 76705; 80053; 80061; 80074; 80159; 80307; 82306; 82607; 82948; 83036; 84443; 85025; 90686; 93005; G0480; J1815; Q2038

== ENCOUNTER 2017-08-27 22:46 | Inpatient (IN) | payer OTHER, MEDICARE ==
[~2017-08-27] VITALS: Ht 154.9 cm; Wt 116.5 kg
[~2017-08-27 22:46] MED LIST changes: -ACIDCAP5; +AMAR2TAB PO; +ATOR40TA16 PO; -BENA25TA3 PO; -CEPH-460 PO; +CHOL5000 PO; -CLOZ100 PO; +CLOZ100T PO; -CLOZ25 PO; +CLOZ50TA PO; -D32000TA PO; +GLIM2TAB PO; +LEVEMIR SQ; +LEVO.125 PO; -LEVO25TA4 PO; +LIOT25 PO; -LIOT25TA3 PO; +METF500 PO; -NEXI40CA PO; +PANT20 PO; +POLY17S PO; -PROB1CAP12; +SENN1TAB PO; +ZOLO100T PO
[2017-08-27 22:54] VITALS: BP 168/88; PULSE 98; RESP 12; TEMP 98.6; O2SAT 98
--- NOTE | 2017-08-27 23:22 | PD ---
HPI Chief Complaint: Suicide Ideation/Attempt Time Seen by Provider: 23:05 Travel History International Travel<30 days: No Contact w/Intl Traveler<30days: No Traveled to known affect area: No History of Present Illness HPI 46-year-old white female presents emergency department as a transfer from [facility] for admission under her Rose act. Patient has insulin- dependent diabetes and is beyond their scope of practice. Patient has been admitted here before her past. Patient states that she has been hearing voices telling her to kill herself. She is concerned that she may succumb and herself. She had attempted overdose on insulin in the past. She has no current plan but is concerned that she may herself. She denies any homicidal ideation. She reports that she has been compliant with her medications. She lives in a senior living. She states that the owners of the senior living have complained that she has been eating too much. She denies any toxic ingestions. No recent medical complaints. PFSH Past Medical History Hx Anticoagulant Therapy: No Autoimmune Disease: No Bipolar Disorder: Yes Anxiety: Yes Depression: Yes Cancer: No Cardiovascular Problems: No High Cholesterol: Yes Chemotherapy: No Cerebrovascular Accident: No Diabetes: Yes Diminished Hearing: No Endocrine: Yes GERD: Yes Genitourinary: No Headaches: Yes (migraines since the past 2 wks. ) Immune Disorder: No Psychiatric: Yes Reproductive: No Respiratory: No Migraines: Yes Schizophrenia: Yes (schizoaffective disorder) Seizures: No Sickle Cell Disease: No Thyroid Disease: Yes Tetanus Vaccination: < 5 Years ?: Not Past Surgical History Surgical History: No Previous Surgery Hysterectomy: No Social History Alcohol Use: No (denies) Tobacco Use: Yes (1/2-1 ppd) Substance Use: No Allergies-Medications (Allergen,Severity, Reaction): Coded Allergies: haloperidol (Unverified Allergy, Unknown, 10/18/16) NO RESPONSE WHEN ASKED WHAT TYPE OF ALLERGY quetiapine (Unverified Allergy, Unknown, 10/18/16) NO RESPONSE WHEN ASKED THE TYPE OF ALLERGY Reported Meds & Prescriptions Reported Meds & Active Scripts Active Senna Plus 8.6-50 mg (Sennosides-Docusate Sodium) 8.6 Mg-50 Mg Tab 1 Tab PO BID 30 Days Polyethylene Glycol 3350 Powder (Polyethylene Glycol) 17 Gram Pow 17 Gm PO DAILY 30 Days Vitamin D3 (Cholecalciferol) 5,000 Unit Cap 5,000 Units PO DAILY 30 Days Cytomel (Liothyronine Sodium) 25 Mcg Tab 25 Mcg PO DAILY 30 Days Synthroid (Levothyroxine Sodium) 125 Mcg Tab 125 Mcg PO DAILY@0600 30 Days Amaryl (Glimepiride) 2 Mg Tab 2 Mg PO DAILYAC 30 Days Levemir Inj (Insulin Detemir) 1,000 unit/ 10 ML Vial 40 Units SQ HS 30 Days Do not mix with any other Insulin. Glucophage (Metformin HCl) 500 Mg Tab 500 Mg PO BIDPC 30 Days Protonix (Pantoprazole Sodium) 20 Mg Tab 20 Mg PO DAILY 30 Days Trihexyphenidyl (Trihexyphenidyl HCl) 5 Mg Tab 5 Mg PO HS 30 Days Clozaril (Clozapine) 100 Mg Tab 300 Mg PO BID 30 Days Clozapine 50 Mg Tab 50 Mg PO HS 30 Days Zoloft (Sertraline HCl) 100 Mg Tab 100 Mg PO DAILY 30 Days Reported Glimepiride 2 Mg Tab 2 Mg PO DAILY Take with breakfast or first main meal Atorvastatin (Atorvastatin Calcium) 40 Mg Tab 40 Mg PO HS Clozaril (Clozapine) 100 Mg Tab 150 Mg PO BID Tri-Previfem (Norgestimate-Ethinyl Estradiol) 0.18/0.215/0.25 Mg-35 Mcg Tab 35 .ROUTE C-500 (Ascorbic Acid) 500 Mg Chew 500 Mg DAILY Review of Systems General / Constitutional: No: Fever Eyes: No: Visual changes HENT: No: Headaches Cardiovascular: No: Chest Pain or Discomfort Respiratory: No: Shortness of Breath Gastrointestinal: No: Nausea, Abdominal Pain Genitourinary: No: Dysuria Musculoskeletal: No: Pain Skin: No Rash Neurologic: No: Weakness Psychiatric: Positive: Depression, Suicidal Ideations, Disorder of Thought, No : Anxiety, Mood Disorder, Substance Abuse, Homicidal Ideation Endocrine: No: Polydipsia Hematologic/Lymphatic: No: Easy Bruising Physical Exam Narrative GENERAL: Well-nourished, well-developed patient. SKIN: Warm and dry. HEAD: Normocephalic and atraumatic. EYES: No scleral icterus. No injection or drainage. ENT: No nasal drainage noted. Mucous membranes pink. Airway patent. NECK: Supple, trachea midline. Moves head freely without obvious discomfort. CARDIOVASCULAR: Regular rate and rhythm without murmurs, gallops, or rubs. RESPIRATORY: Breath sounds equal bilaterally. No accessory muscle use. GASTROINTESTINAL: Abdomen soft, non-tender, nondistended. EXTREMITIES: No cyanosis or edema. BACK: Nontender without obvious deformity. No CVA tenderness. NEURO: Patient is alert and oriented. no sensorimotor deficits. Nonfocal. Normal speech. PSYCH: No delusions. Positive auditory but no visual hallucinations. Data Data Last Documented VS Vital Signs Date Time Temp Pulse Resp B/P (MAP) Pulse Ox O2 Delivery O2 Flow Rate FiO2 08/27/17 22:54 98.6 98 12 168/88 (114) 98 Orders Orders Complete Blood Count With Diff (08/27/17 23:06) Comprehensive Metabolic Panel (08/27/17 23:06) Thyroid Stimulating Hormone (08/27/17 23:06) Urinalysis - C+S If Indicated (08/27/17 23:06) Psych Screen (08/27/17 23:06) Blood Glucose (08/27/17 23:06) Drug Screen, Random Urine (08/27/17 23:06) Alcohol (Ethanol) (08/27/17 23:06) MDM Medical Decision Making Medical Screen Exam Complete: Yes Emergency Medical Condition: Yes Medical Record Reviewed: Yes Differential Diagnosis MDM: High Differential diagnoses: Schizophrenia, schizoaffective disorder, bipolar, anxiety, depression, adjustment reaction, mood disorder NOS, ODD, depressive disorder NOS, dementia, dementia with agitation, psychosis NOS, substance induced mood disorder, DMDD, Asperger syndrome, infection,electrolyte abnormality, malingering. Narrative Course Mental health screening discussed with the patient. Psychiatric screen ordered. The patient has been medically cleared. This is medical clearance for psychiatric admission, schizophrenia, paranoid, chronic Diagnosis Primary Impression: Medical clearance for psychiatric admission Additional Impression: Schizophrenia, paranoid, chronic Condition: Stable Porfirio Fontaine Aug 27, 2017 23:22
[2017-08-27 23:38] LABS: AUTOMATED NEUTROPHIL # 6.1 TH/MM3 (1.8-7.7); BASOPHIL # 0.1 TH/MM3 (0-0.2); BASOPHIL % 0.8 % (0.0-2.0); EOSINOPHIL # 0.3 TH/MM3 (0-0.4); EOSINOPHIL % 3.4 % (0.0-4.0); HEMATOCRIT 36.5 % (35.0-46.0); HEMOGLOBIN 11.9 GM/DL (11.6-15.3); LYMPH % 28.2 % (9.0-44.0); LYMPHOCYTE # 2.8 TH/MM3 (1.0-4.8); MEAN CELL VOLUME 83.3 FL (80.0-100.0); MEAN CORPUSCULAR HEMOGLOBIN 27.2 PG (27.0-34.0); MEAN CORPUSCULAR HGB CONC 32.6 % (32.0-36.0); MEAN PLATELET VOLUME 9.9 FL (7.0-11.0); MONO % 6.9 % (0.0-8.0); MONOCYTE # 0.7 TH/MM3 (0-0.9); NEUT % 60.7 % (16.0-70.0); PLATELET COUNT 291 TH/MM3 (150-450); RED BLOOD COUNT 4.37 MIL/MM3 (4.00-5.30); RED CELL DISTRIBUTION WIDTH 15.1 % (11.6-17.2)
[2017-08-27 23:53] LABS: ALBUMIN 3.8 GM/DL (3.4-5.0); AST (GOT) 27 U/L (15-37); BICARBONATE 22.5 MEQ/L (21.0-32.0); BLOOD UREA NITROGEN 15 MG/DL (7-18); CALCIUM 9.2 MG/DL (8.5-10.1); CHLORIDE 108 MEQ/L (98-107); CREATININE 0.91 MG/DL (0.50-1.00); GLOMERULAR FILTRATION RATE 67 ML/MIN (>89); GLUCOSE,RANDOM 172 MG/DL (74-106); SODIUM (NA) 141 MEQ/L (136-145)
[2017-08-27 23:54] LABS: ALT (GPT) 34 U/L (10-53)
[2017-08-28 00:04] LABS: ALKALINE PHOSPHATASE 68 U/L (45-117); TOTAL BILIRUBIN ADULT 0.2 MG/DL (0.2-1.0); TOTAL PROTEIN 7.6 GM/DL (6.4-8.2)
[2017-08-28 05:26] LABS: BILIRUBIN, URINE NEG (NEG); BLOOD, URINE NEG (NEG); GLUCOSE,URINE >=500 mg/dL (NEG); KETONE, URINE NEG (NEG); MUCUS URINE FEW /lpf (OCC); NITRITE,URINE NEG (NEG); SQUAMOUS EPITHELIAL CELL URINE 3 /hpf (0-5); URINE COLOR YELLOW (YELLW/STRAW); URINE LEUKOCYTE ESTERASE NEG (NEG)
[2017-08-28 06:13] VITALS: BP 141/71; PULSE 97; RESP 18; TEMP 96.3; O2SAT 97
[2017-08-28] MEDS ORDERED: ALUMINUM/MAGNESIUM/SIMETH 30 ML CUP PO PRN (16:00)
[2017-08-28] MEDS ORDERED: MAGNESIUM HYDROXIDE SUSP 30 ML CUP PO PRN (16:00)
[2017-08-28] MEDS ORDERED: ACETAMINOPHEN 325 MG TAB PO PRN (16:00)
--- NOTE | 2017-08-28 16:40 | PD ---
History of Present Illness Chief Complaint: Suicide Ideation/Attempt Time Seen by Provider: 14:38 Travel History International Travel<30 Days: No Contact w/Intl Traveler<30days: No Known affected area: No Legal Status Legal Status: Voluntary Rose Act Signed By: Jovana Burkiff Rose Act Comment: 2017 @ [id number] History of Present Illness: This is a 46-year-old single, female who presents to this facility voluntarily reporting suicidal ideation, insomnia, and paranoia. She is known to this facility was previously admitted from November 29 - December 08, 2016 with a diagnosis of schizophrenia. Reviewed electronic medical record, labs, discuss case with staff. Patient was evaluated in room in J pod. Patient is alert and oriented 4. Her speech is clear, logical, and organized. She is observed ambulating in the hallway without difficulty. She Kassie is suicidal ideation by a overdose of insulin of which she has made one previous attempt. She reports that she lives in assisted living facility and receives Social Security disability. She reports compliance with her medications. She states "I was paranoid and feeling suicidal. I have been unable to sleep for several days now because I believe someone will kill me if I go to sleep". She denies homicidal ideation, auditory or visual hallucinations. She does not appear to be internally stimulated nor is there any indication of thought blocking. PFSH Past Medical History Hx Anticoagulant Therapy: No Autoimmune Disease: No Bipolar Disorder: Yes Anxiety: Yes Depression: Yes Cancer: No Cardiovascular Problems: No High Cholesterol: Yes Chemotherapy: No Cerebrovascular Accident: No Diabetes: Yes Patient Takes Glucophage: No Diminished Hearing: No Endocrine: Yes GERD: Yes Genitourinary: No Headaches: Yes (migraines since the past 2 wks. ) Heparin Induced Thrombocytopen: No Immune Disorder: No Implanted Vascular Access Dvce: No Psychiatric: Yes Reproductive: No Respiratory: No Migraines: Yes Schizophrenia: Yes (schizoaffective disorder) Seizures: No Sickle Cell Disease: No Thyroid Disease: Yes Tetanus Vaccination: < 5 Years ?: Not Past Surgical History Surgical History: No Previous Surgery Hysterectomy: No Other Surgery: No Psychiatric History Psychiatric History Patient was admitted to this facility from November 29 December [id number] with a diagnosis of schizophrenia. She reports receiving outpatient treatment for mental health issues. Hx Psychiatric Treatment: Patient is a poor historian but does state she was inpatient at The [address] [facility] in [place] for outpatient services. This is patient's first hospitalization with [facility] History of Inpatient Treatment: Yes Guns or firearms in home: No Social History Resides in assisted living facility. She reports that she smokes 1/2-1 pack per day of cigarettes denies drinking alcohol or using illicit drugs. Hx Alcohol Use: No (denies) Hx Tobacco Use: Yes Hx Substance Use: No Substance Use Type: Marijuana, Amphetamines-Stimulants, Ecstasy, Cocaine Other Substances Used: HX OF Hx of Substance Use Treatment: No Allergies-Medications (Allergen,Severity, Reaction): Coded Allergies: haloperidol (Unverified Allergy, Unknown, 10/18/16) NO RESPONSE WHEN ASKED WHAT TYPE OF ALLERGY quetiapine (Unverified Allergy, Unknown, 10/18/16) NO RESPONSE WHEN ASKED THE TYPE OF ALLERGY Reported Meds & Prescriptions Reported Meds & Active Scripts Active Senna Plus 8.6-50 mg (Sennosides-Docusate Sodium) 8.6 Mg-50 Mg Tab 1 Tab PO BID 30 Days Polyethylene Glycol 3350 Powder (Polyethylene Glycol) 17 Gram Pow 17 Gm PO DAILY 30 Days Vitamin D3 (Cholecalciferol) 5,000 Unit Cap 5,000 Units PO DAILY 30 Days Cytomel (Liothyronine Sodium) 25 Mcg Tab 25 Mcg PO DAILY 30 Days Synthroid (Levothyroxine Sodium) 125 Mcg Tab 125 Mcg PO DAILY@0600 30 Days Amaryl (Glimepiride) 2 Mg Tab 2 Mg PO DAILYAC 30 Days Levemir Inj (Insulin Detemir) 1,000 unit/ 10 ML Vial 40 Units SQ HS 30 Days Do not mix with any other Insulin. Glucophage (Metformin HCl) 500 Mg Tab 500 Mg PO BIDPC 30 Days Protonix (Pantoprazole Sodium) 20 Mg Tab 20 Mg PO DAILY 30 Days Trihexyphenidyl (Trihexyphenidyl HCl) 5 Mg Tab 5 Mg PO HS 30 Days Clozaril (Clozapine) 100 Mg Tab 300 Mg PO BID 30 Days Clozapine 50 Mg Tab 50 Mg PO HS 30 Days Zoloft (Sertraline HCl) 100 Mg Tab 100 Mg PO DAILY 30 Days Reported Glimepiride 2 Mg Tab 2 Mg PO DAILY Take with breakfast or first main meal Atorvastatin (Atorvastatin Calcium) 40 Mg Tab 40 Mg PO HS Clozaril (Clozapine) 100 Mg Tab 150 Mg PO BID Tri-Previfem (Norgestimate-Ethinyl Estradiol) 0.18/0.215/0.25 Mg-35 Mcg Tab 35 .ROUTE C-500 (Ascorbic Acid) 500 Mg Chew 500 Mg DAILY Review of Systems Except as stated in HPI: all other systems reviewed are Neg Mental Status Examination Appearance: Appropriate Consciousness: Alert Orientation: x4 Motor Activity: Normal gait Speech: Unremarkable Language: Adequate Fund of Knowledge: Adequate Attention and Concentration: Adequate Memory: Unremarkable Mood: Anxious Affect: Anxious Thought Process & Associations: Intact Thought Content: Delusional Hallucination Type: Auditory Delusion Type: Paranoid Suicidal Ideation: Yes Suicidal Plan: Yes Suicidal Intention: No Homicidal Ideation: No Homicidal Plan: No Homicidal Intention: No Insight: Fair Judgment: Impulsive MDM Medical Decision Making Medical Record Reviewed: Yes Assessment/Plan This is a 46-year-old single, female who presents to this facility voluntarily reporting suicidal ideation, insomnia, and paranoia. She is known to this facility was previously admitted from November 29 - December 08, 2016 with a diagnosis of schizophrenia. Reviewed electronic medical record, labs, discuss case with staff. Patient was evaluated in room in J pod. Patient is alert and oriented 4. Her speech is clear, logical, and organized. She is observed ambulating in the hallway without difficulty. She Kassie is suicidal ideation by a overdose of insulin of which she has made one previous attempt. She reports that she lives in assisted living facility and receives Social Security disability. She reports compliance with her medications. She states "I was paranoid and feeling suicidal. I have been unable to sleep for several days now because I believe someone will kill me if I go to sleep". She denies homicidal ideation, auditory or visual hallucinations. She does not appear to be internally stimulated nor is there any indication of thought blocking. Patient meets inpatient criteria based on her reported suicidal ideation as well as her previous attempts. She will be admitted to a locked inpatient psychiatric unit for further evaluation and treatment as deemed necessary for psychiatric stabilization. Request HC Surrog/Guard Advoc?: No Orders Orders Complete Blood Count With Diff (08/27/17 23:06) Comprehensive Metabolic Panel (08/27/17 23:06) Thyroid Stimulating Hormone (08/27/17 23:06) Urinalysis - C+S If Indicated (08/27/17 23:06) Psych Screen (08/27/17 23:06) Blood Glucose (08/27/17 23:06) Drug Screen, Random Urine (08/27/17 23:06) Alcohol (Ethanol) (08/27/17 23:06) Diet Regular Basic (08/28/17 Breakfast) Diet Regular Basic (08/28/17 Lunch) Admit Order (Ed Use Only) (08/28/17 15:55) Admit To Inpatient Psych (08/28/17 ) Code Status (08/28/17 15:58) Vital Signs (Adult) JACKSON.Q12H.E (08/28/17 15:58) Activity Oob Ad Nevin (08/28/17 15:58) Level Of Observation (Psych) (08/28/17 15:58) Acetaminophen (Tylenol) (08/28/17 16:00) Magnesium Hydroxide Liq (Milk Of Magnesi (08/28/17 16:00) Al-Mag Hy-Si 40-40-4 Mg/Ml Liq (Mag-Al P (08/28/17 16:00) Nicotine 21 Mg Patch.24 Hr (Habitrol 21 (08/29/17 09:00) Basic Metabolic Panel (Bmp) (08/29/17 06:00) Lipid Profile (08/29/17 06:00) Hemoglobin (Hgb) A1c (08/29/17 06:00) Remove Old Patch (08/28/17 16:00) Results Vital Signs Date Time Temp Pulse Resp B/P (MAP) Pulse Ox O2 Delivery O2 Flow Rate FiO2 08/28/17 06:13 96.3 97 18 141/71 (94) 97 08/27/17 22:54 98.6 98 12 168/88 (114) 98 Laboratory Tests Test 08/27/17 22:57 08/27/17 23:33 White Blood Count 10.0 Red Blood Count 4.37 Hemoglobin 11.9 Hematocrit 36.5 Mean Corpuscular Volume 83.3 Mean Corpuscular Hemoglobin 27.2 Mean Corpuscular Hemoglobin Concent 32.6 Red Cell Distribution Width 15.1 Platelet Count 291 Mean Platelet Volume 9.9 Neutrophils (%) (Auto) 60.7 Lymphocytes (%) (Auto) 28.2 Monocytes (%) (Auto) 6.9 Eosinophils (%) (Auto) 3.4 Basophils (%) (Auto) 0.8 Neutrophils # (Auto) 6.1 Lymphocytes # (Auto) 2.8 Monocytes # (Auto) 0.7 Eosinophils # (Auto) 0.3 Basophils # (Auto) 0.1 CBC Comment DIFF FINAL Differential Comment Blood Urea Nitrogen 15 Creatinine 0.91 Random Glucose 172 Total Protein 7.6 Albumin 3.8 Calcium Level 9.2 Alkaline Phosphatase 68 Aspartate Amino Transf (AST/SGOT) 27 Alanine Aminotransferase (ALT/SGPT) 34 Total Bilirubin 0.2 Sodium Level 141 Potassium Level 4.1 Chloride Level 108 Carbon Dioxide Level 22.5 Anion Gap 11 Estimat Glomerular Filtration Rate 67 Thyroid Stimulating Hormone 3rd Gen 2.130 Ethyl Alcohol Level LESS THAN 3 Urine Color YELLOW Urine Turbidity CLEAR Urine pH 6.0 Urine Specific [place] 1.018 Urine Protein NEG Urine Glucose (UA) >=500 Urine Ketones NEG Urine Occult Blood NEG Urine Nitrite NEG Urine Bilirubin NEG Urine Urobilinogen LESS THAN 2 Urine Leukocyte Esterase NEG Urine RBC LESS THAN 1 Urine WBC LESS THAN 1 Urine Squamous Epithelial Cells 3 Urine Mucus FEW Microscopic Urinalysis Comment CULT NOT INDICATED Urine Opiates Screen NEG Urine Barbiturates Screen NEG Urine Amphetamines Screen NEG Urine Benzodiazepines Screen NEG Urine Cocaine Screen NEG Urine Cannabinoids Screen NEG Diagnosis Primary Impression: Unspecified psychosis Admitting Information Admitting Physician Requests: Admit Condition: Stable MateusLuisgerry BENITES Aug 28, 2017 16:40
[2017-08-28] MEDS ORDERED: ROSU40 PO (17:43)
[2017-08-28] MEDS ORDERED: TRAZ50TA12 PO (17:43)
[2017-08-28] MEDS ORDERED: INSU1INJ14 SQ (17:43)
[2017-08-28] MEDS: NICOTINE 21 MG/24 HR PATCH T-DERMAL SCH (19:15)
[2017-08-28] MEDS: REMOVE OLD PATCH T-DERMAL SCH (19:15)
[2017-08-28] MEDS: metFORMIN HCL 500 MG TAB PO SCH (19:16)
[2017-08-28 20:00] VITALS: BP 140/84; PULSE 95; RESP 17; TEMP 98; O2SAT 96
[2017-08-28] MEDS: cloZAPine 100 MG TAB PO SCH (21:33)
[2017-08-28] MEDS: traZODone HCL 50 MG TAB PO SCH (21:33)
[2017-08-28] MEDS: TRIHEXYPHENIDYL HCL 5 MG TAB PO SCH (21:33)
[2017-08-29] MEDS: LEVOTHYROXINE SODIUM 125 MCG TAB PO SCH (05:53)
[2017-08-29 06:15] VITALS: BP 118/62; PULSE 91; RESP 16; TEMP 97.9; O2SAT 92
[2017-08-29 08:53] LABS: BICARBONATE 20.4 MEQ/L (21.0-32.0); BLOOD UREA NITROGEN 19 MG/DL (7-18); CALCIUM 9.4 MG/DL (8.5-10.1); CHLORIDE 106 MEQ/L (98-107); CREATININE 1.03 MG/DL (0.50-1.00); GLOMERULAR FILTRATION RATE 58 ML/MIN (>89); GLUCOSE,RANDOM 265 MG/DL (74-106); SODIUM (NA) 137 MEQ/L (136-145)
[2017-08-29 08:54] LABS: CHOLESTEROL 149 MG/DL (120-200); TRIGLYCERIDES 237 MG/DL (42-150)
[2017-08-29 08:56] LABS: HDL CHOLESTEROL 49.6 MG/DL (40.0-60.0); LDL CHOLESTEROL 52 MG/DL (0-99)
[2017-08-29] MEDS ORDERED: INSULIN DEGLUDEC SQ SCH (09:00)
[2017-08-29] MEDS: REMOVE OLD PATCH T-DERMAL SCH (09:00)
[2017-08-29] MEDS ORDERED: NON-FORMULARY DRUG (Rosuvastatin (Crestor) 40 MG) PO SCH (09:00)
[2017-08-29] MEDS ORDERED: NON-FORMULARY DRUG (Insulin Degludec Inj (Tresiba Flextouch Pen Inj) 1 UNITS) SQ SCH (09:00)
[2017-08-29] MEDS: ATORVASTATIN 80 MG TAB PO SCH (09:07)
[2017-08-29] MEDS: metFORMIN HCL 500 MG TAB PO SCH ×2 (09:07→18:35)
[2017-08-29] MEDS: SERTRALINE HCL 100 MG TAB PO SCH (09:07)
[2017-08-29] MEDS: cloZAPine 100 MG TAB PO SCH ×2 (09:07→21:13)
[2017-08-29] MEDS: NICOTINE 21 MG/24 HR PATCH T-DERMAL SCH (09:08)
--- NOTE | 2017-08-29 10:19 | PD.TTN ---
Patient Problems 1. Discharge planning 2. Medication compliance 3. Knowledge deficit 4. Lack of coping skills Progress Toward Goals Provider Present: Dr. Sanjana Richardson Provider Input: 08/29/2017; patient is a new admission, doctor will assess for neccessary treatment/medication Psychiatric Counselors Present: YOLANDA Pena Psych Therapist Input: 08/29/2017; Bio will need to be completed by assign counselor Group Spec/RT/OT/SANDERS Present: Ida Kearns, GERDA, Mark Bishop, OT Group Spec/RT/OT/SANDERS Input: 08/29/2017: patient will be assess for group and activity participation and given information Documentation Scribe: Shauna Parra Aug 29, 2017 10:19
[2017-08-29] MEDS ORDERED: DEXTROSE 50% IN WATER 50 ML VIAL(D50) IV PUSH PRN (10:45)
[2017-08-29] MEDS ORDERED: BENZTROPINE MESYLATE 1 MG TAB PO PRN (10:45)
[2017-08-29] MEDS ORDERED: diphenhydrAMINE HCL 50 MG CAP PO PRN (10:45)
[2017-08-29] MEDS ORDERED: BENZTROPINE MESYLATE 2 MG/2 ML VIAL IM PRN (10:45)
[2017-08-29] MEDS ORDERED: GLUCAGON 1 MG/ML VIAL OTHER PRN (10:45)
[2017-08-29] MEDS ORDERED: LORazepam 0.5 MG TAB PO PRN (10:45)
[2017-08-29] MEDS ORDERED: LORazepam 2 MG/ML VIAL IM PRN (10:45)
--- NOTE | 2017-08-29 10:46 | HHI.HP ---
Provisional Diagnosis Admission Date Aug 28, 2017 at 15:58 [place] I. 1. Schizophrenia, paranoid type, acute exacerbation Derby II. Deferred Certification of Person's Competence To Provide Express and Informed Consent I have personally examined Muna Juarez , a person being served at [facility] on, Aug 29, 2017 10:45. Express and informed consent means consent voluntarily given in writing, by a competent person, after sufficient explanation and disclosure of the subject matter involved to enable the person to make a knowing and willful decision without any element of force, fraud, deceit, duress, or other form of constraint or coercion. This person is 18 years of age or older, is not now known to be incompetent to consent to treatment with a guardian advocate, and does not have a health care surrogate or proxy currently making medical treatment decisions. I have found this person to be one of the following: [x] Competent to provide express and informed consent, as defined above, for voluntary admission to this facility and is competent to provide express and informed consent for treatment. He/she has the consistent capacity to make well reasoned, willful, and knowing decisions concerning his or her medical or mental health treatment. The person fully and consistently understands the purpose of the admission for examination/placement and is fully capable of personally exercising all rights assured [place] Incompetent to provide express and informed consent to voluntary admission, and this is incompetent to provide express and informed consent to treatment. The person must be transferred to involuntary status and a petition for a guardian advocate filed with the Circuit Court. [] Refusing to provide express and informed consent to voluntary admission but is competent to provide express and informed consent for treatment. The person must be discharged or transferred to involuntary status. Form shall be completed within 24 hours of a person's arrival at the receiving facility and filed in the clinical record of each person: 1. Admitted on a voluntary basis 2. Permitted to provide express and informed consent to his/her own treatment 3. Allowed to transfer from involuntary to voluntary status 4. Prior to permitting a person to consent to his or her own treatment after having been previously found incompetent to consent to treatment. History of Present Illness Capacity: Has Capacity Psych Chief Complaint: Psychosis HPI Ms. Juarez is a 46-year-old female with a history of schizophrenia who presents under a Rose act initiated by law enforcement alleging that the patient contacted officers saying that she was hearing voices in her head telling her to kill herself and that she was thinking about overdosing on her insulin. Reviewing the electronic medical record, I note that the patient was psychiatrically hospitalized under Dr. Carrillo last year. Patient seen and examined with counselor Naima. Chart reviewed. Case discussed with nursing staff. On my examination today, patient notes that she has been experiencing worsening auditory hallucinations since 2016. She hears the voices of friends that tell her she is "Satan" or "Beelzebub" and are otherwise deprecatory. Patient notes that she is a devout [employer], and so these deprecatory hallucinations are especially distressing for her. She also notes that the voices tell her not to bathe or attend to other hygiene tasks. Finally, she tells me that the voices instruct her to do "the hated thing," namely suicide. She does continue to endorse suicidal ideation with plan to overdose on insulin, although she does contract for safety on the inpatient unit. Patient notes that she selected the insulin as this is the only medication she self-administers at the facility where she resides. Patient denies any suicidal intent, noting that she is fearful of going to hell. She admits to some feelings of paranoia, but I can elicit no delusional material otherwise. Mood is depressed and anxious secondary to psychotic symptoms. She engages in a fair amount of negative self-talk. No hypomanic or manic symptoms presently. Remainder of the psychiatric ROS is negative. No acute physical complaints. Past psychiatric history: Patient has a history of schizophrenia. She follows on an outpatient basis at [facility]. She has prescribed Clozaril 300 mg twice daily, Zoloft 100 mg daily and trazodone 50 mg at bedtime. Patient notes that she has not been able to tolerate a larger dose of clozapine in the past. She is on monthly CBC blood monitoring. She has also previously tried Geodon, Abilify and Risperdal and has been unable to tolerate Haldol or Seroquel. She has also been on Trileptal, Depakote and lithium in the past. Most recent psychiatric admission was here at [facility]. She was hospitalized [address] [facility]. She endorses 4 or 5 previous suicide attempts, all by overdose, most recently in 2013. Family history: The patient reports that her maternal great aunt and maternal uncle both had schizophrenia. She denies any family history of suicide. Chemical dependency history: The patient denies any abuse of drugs or alcohol presently. She does note that she smoked cannabis in her 20s. Social history: The patient lives in an assisted living facility in [place] called [facility]. She collects [employer]. She has limited contact with her family. She is high school educated. She previously worked doing clerical work until age 30. She denies any history. Denies any legal history. Denies any access to guns or firearms. She is a [employer]. Review of Systems ROS Limitations: Psychotic Except as stated in HPI: all other systems reviewed are Neg Past Family Social History Coded Allergies: haloperidol (Unverified Allergy, Unknown, 10/18/16) NO RESPONSE WHEN ASKED WHAT TYPE OF ALLERGY quetiapine (Unverified Allergy, Unknown, 10/18/16) NO RESPONSE WHEN ASKED THE TYPE OF ALLERGY Past Medical History Includes a history of diabetes. See electronic medical record. Active Scripts Sennosides-Docusate Sodium (Senna Plus 8.6-50 mg) 8.6 Mg-50 Mg Tab, 1 TAB PO BID for health for 30 Days, #60 TAB Prov:Arjun Carrillo MD 12/08/16 Polyethylene Glycol 3350 Powder (Polyethylene Glycol 3350 Powder) 17 Gram Pow, 17 GM PO DAILY for health for 30 Days, #30 PACKET Prov:Arjun Carrillo MD 12/08/16 Cholecalciferol (Vitamin D3) 5,000 Unit Cap, 5000 UNITS PO DAILY for health for 30 Days, #30 CAP Prov:Arjun Carrillo MD 12/08/16 Liothyronine (Cytomel) 25 Mcg Tab, 25 MCG PO DAILY for health for 30 Days, #30 TAB Prov:Arjun Carrillo MD 12/08/16 Levothyroxine (Synthroid) 125 Mcg Tab, 125 MCG PO DAILY@0600 for health for 30 Days, #30 TAB Prov:Arjun Carrillo MD 12/08/16 Glimepiride (Amaryl) 2 Mg Tab, 2 MG PO DAILYAC for health for 30 Days, #30 TAB Prov:Arjun Carrillo MD 12/08/16 Insulin Detemir Inj (Levemir Inj) 1,000 unit/ 10 ML Vial, 40 UNITS SQ HS for health for 30 Days, #1 INJECTION Do not mix with any other Insulin. Prov:Arjun Carrillo MD 12/08/16 Metformin (Glucophage) 500 Mg Tab, 500 MG PO BIDPC for health for 30 Days, #60 TAB Prov:Arjun Carrillo MD 12/08/16 Pantoprazole (Protonix) 20 Mg Tab, 20 MG PO DAILY for health for 30 Days, #30 TAB Prov:Arjun Carrillo MD 12/08/16 Trihexyphenidyl (Trihexyphenidyl) 5 Mg Tab, 5 MG PO HS for health for 30 Days, # 30 TAB Prov:Arjun Carrillo MD 12/08/16 Clozapine (Clozaril) 100 Mg Tab, 300 MG PO BID for health for 30 Days, #180 TAB Prov:Arjun Carrillo MD 12/08/16 Sertraline (Zoloft) 100 Mg Tab, 100 MG PO DAILY for health for 30 Days, #30 TAB Prov:Arjun Carrillo MD 12/08/16 Reported Medications Trazodone (Trazodone) 50 Mg Tab, 50 MG PO HS for Control Depression, #30 TAB 0 Refills 08/28/17 Insulin Degludec Inj (Tresiba Flextouch Pen Inj) 300 unit/3 ML Pen, 1 UNITS SQ TID for Blood Sugar Management, #15 ML 0 Refills 08/28/17 Rosuvastatin (Crestor) 40 Mg Tab, 40 MG PO DAILY for Cholesterol Management, # 30 TAB 0 Refills 08/28/17 Glimepiride (Glimepiride) 2 Mg Tab, 2 MG PO DAILY for Blood Sugar Management, # 30 TAB 0 Refills Take with breakfast or first main meal 11/29/16 Atorvastatin (Atorvastatin) 40 Mg Tab, 40 MG PO HS for Cholesterol Management, # 30 TAB 0 Refills 11/28/16 Norgestimate-Ethinyl Estradiol (Tri-Previfem) 0.18/0.215/0.25 Mg-35 Mcg Tab, 35 .ROUTE 05/28/16 Ascorbic Acid (C-500) 500 Mg Chew, 500 MG DAILY, #2 05/28/16 Discontinued Reported Medications Clozapine (Clozaril) 100 Mg Tab, 150 MG PO BID for Schizophrenia, TAB 0 Refills 05/28/16 Discontinued Scripts Clozapine (Clozapine) 50 Mg Tab, 50 MG PO HS for Schizophrenia for 30 Days, #30 TAB 0 Refills Prov:Arjun Carrillo MD 12/08/16 Current Medications Medications (Trade) Dose Ordered Sig/Isra Route Start Time Stop Time Status Last Admin (Tylenol) 650 mg Q4H PRN PO 08/28/17 16:00 (Milk Of Magnesia Liq) 30 ml DAILY PRN PO 08/28/17 16:00 (Mag-Al Plus Susp Liq) 30 ml Q6H PRN PO 08/28/17 16:00 (Habitrol 21 Mg Patch.24 Hr) 1 patch DAILY T-DERMAL 08/28/17 16:36 08/29/17 09:08 Miscellaneous Information 1 DAILY T-DERMAL 08/28/17 16:00 08/29/17 09:00 (Clozaril) 300 mg BID PO 08/28/17 21:00 08/29/17 09:07 (Synthroid) 125 mcg DAILY@0600 PO 08/29/17 06:00 08/29/17 05:53 (Glucophage) 500 mg BIDPC PO 08/28/17 18:30 08/29/17 09:07 (Zoloft) 100 mg DAILY PO 08/29/17 09:00 08/29/17 09:07 (Desyrel) 50 mg HS PO 08/28/17 21:00 08/28/17 21:33 (Artane) 5 mg HS PO 08/28/17 21:00 08/28/17 21:33 (Lipitor) 80 mg DAILY PO 08/29/17 09:00 08/29/17 09:07 Patient Own Medication PT OWN MED: TRESIBA(DEGLUDEC)--NE... TID SQ 08/29/17 09:00 Future Hold Patient's Strengths (min. 2) In a monitored setting. Verbally fluent. Physical Exam Physical exam completed by ED provider. On my examination today, the patient appears to be in no acute physical distress. No motor abnormalities noted. Labs and vital signs reviewed: Vital Signs Vital Signs Date Time Temp Pulse Resp B/P (MAP) Pulse Ox O2 Delivery O2 Flow Rate FiO2 08/29/17 06:15 97.9 91 16 118/62 (80) 92 Lab Results Test 08/29/17 08:06 Blood Urea Nitrogen 19 MG/DL Creatinine 1.03 MG/DL Random Glucose 265 MG/DL Calcium Level 9.4 MG/DL Sodium Level 137 MEQ/L Potassium Level 4.1 MEQ/L Chloride Level 106 MEQ/L Carbon Dioxide Level 20.4 MEQ/L Anion Gap 11 MEQ/L Estimat Glomerular Filtration Rate 58 ML/MIN Triglycerides Level 237 MG/DL Cholesterol Level 149 MG/DL LDL Cholesterol 52 MG/DL HDL Cholesterol 49.6 MG/DL Cholesterol/HDL Ratio 3.00 RATIO Decreased GFR noted. EKG reveals sinus rhythm with a QTC of 435 ms, not prolonged. Mental Status Examination Appearance: Appropriate Consciousness: Alert Orientation: x4 Motor Activity: Normal gait Speech: Unremarkable Language: Adequate Fund of Knowledge: Adequate Attention and Concentration: Adequate Memory: Unremarkable (Grossly intact on clinical exam) Mood: Anxious, Other (Depressed) Affect: Anxious, Other (Consistent with mood) Thought Process & Associations: Intact, Logical, Linear Thought Content: Hallucinations, Delusional Hallucination Type: Auditory (As noted above) Delusion Type: Paranoid Suicidal Ideation: Yes Suicidal Plan: Yes (Overdose on insulin) Suicidal Intention: No (Contracts for safety on inpatient unit) Homicidal Ideation: No Homicidal Plan: No Homicidal Intention: No Insight: Adequate Judgment: Adequate Assessment & Plan Problem List: (1) Schizophrenia, paranoid, chronic ICD Codes: F20.0 - Paranoid schizophrenia Assessment & Plan 46-year-old female with psychiatric history as detailed above who presents under a Rose act. On my examination today, the patient reports command auditory hallucinations to self injure and neglect self-care. Patient is already on a robust dose of clozapine and reports that she has not been able to tolerate a larger dose of clozapine in the past. We discuss various strategies for management of her ongoing psychotic symptoms including but not limited to augmentation of clozapine with second antipsychotic and ECT. Patient requires psychiatric hospitalization at this time for safety, observation and stabilization. Admit inpatient. Voluntary status. Augment clozapine with Latuda 40mg with dinner with plans to titrate to effect. Continue clozapine 300mg BID, Zoloft 100mg daily and trazodone 50mg qHS. Consult hospitalist for medical management , in particular because patient's home insulin is not available from the pharmacy. Vitals every shift. Counselor to see. Collateral information. Disposition planning. Estimated length of stay: 5-7 days. Discharge Planning Pending psychiatric stabilization Request HC Surrog/Guard Advoc?: No Ulices Richardson MD Aug 29, 2017 10:46
[2017-08-29] MEDS: INSULIN ASPART SUPPLEMENTAL SCALE SQ SCH ×3 (11:32→21:00)
--- NOTE | 2017-08-29 11:56 | PD.CONS ---
HPI Service [facility] Hospitalists Consult Requested By Dr. Richardson Reason for Consult Diabetes Management Primary Care Physician Unknown Diagnoses: History of Present Illness 46-year-old female with history of insulin-dependent diabetes, hyperlipidemia, hypothyroidism, GERD, anxiety, depression, bipolar, schizoaffective, admitted to inpatient psych under Rose act from [facility]. Reportedly the patient has been hearing voices to kill herself. Hospitalist consulted for medical management of diabetes. The patient is seen in the dayroom room, tolerating her lunch. She declines to go to private room because she is eating. She has no specific medical complaints including no headache, lightheadedness, dizziness, chest pain, palpitations, shortness of breath, abdominal or urinary complaints. She denies any polyuria or polydipsia. She states she takes Tresiba 50 units at bedtime. Her medication is at home and she does not have anyone available to bring it to her. She states she was on Levemir in the past but does not recall the dose. She also does take metformin and glimepiride. She states her blood sugars are typically fairly well-controlled. Discussed with RN, no acute concerns. Vital signs reviewed and stable. Review of Systems Except as stated in HPI: all other systems reviewed are Neg Past Family Social History Allergies: Coded Allergies: haloperidol (Unverified Allergy, Unknown, 10/18/16) NO RESPONSE WHEN ASKED WHAT TYPE OF ALLERGY quetiapine (Unverified Allergy, Unknown, 10/18/16) NO RESPONSE WHEN ASKED THE TYPE OF ALLERGY Past Medical History insulin-dependent diabetes hyperlipidemia hypothyroidism GERD anxiety depression bipolar schizoaffective Past Surgical History Denies any prior surgeries Reported Medications Reported Meds & Active Scripts Active Senna Plus 8.6-50 mg (Sennosides-Docusate Sodium) 8.6 Mg-50 Mg Tab 1 Tab PO BID 30 Days Polyethylene Glycol 3350 Powder (Polyethylene Glycol) 17 Gram Pow 17 Gm PO DAILY 30 Days Vitamin D3 (Cholecalciferol) 5,000 Unit Cap 5,000 Units PO DAILY 30 Days Cytomel (Liothyronine Sodium) 25 Mcg Tab 25 Mcg PO DAILY 30 Days Synthroid (Levothyroxine Sodium) 125 Mcg Tab 125 Mcg PO DAILY@0600 30 Days Amaryl (Glimepiride) 2 Mg Tab 2 Mg PO DAILYAC 30 Days Glucophage (Metformin HCl) 500 Mg Tab 500 Mg PO BIDPC 30 Days Protonix (Pantoprazole Sodium) 20 Mg Tab 20 Mg PO DAILY 30 Days Trihexyphenidyl (Trihexyphenidyl HCl) 5 Mg Tab 5 Mg PO HS 30 Days Clozaril (Clozapine) 100 Mg Tab 300 Mg PO BID 30 Days Zoloft (Sertraline HCl) 100 Mg Tab 100 Mg PO DAILY 30 Days Trazodone (Trazodone HCl) 50 Mg Tab 50 Mg PO HS Tresiba Flextouch Pen Inj (Insulin Degludec Inj) 300 unit/3 ML Pen 50 Units SQ hs Crestor (Rosuvastatin Calcium) 40 Mg Tab 40 Mg PO DAILY Glimepiride 2 Mg Tab 2 Mg PO DAILY Take with breakfast or first main meal Atorvastatin (Atorvastatin Calcium) 40 Mg Tab 40 Mg PO HS Tri-Previfem (Norgestimate-Ethinyl Estradiol) 0.18/0.215/0.25 Mg-35 Mcg Tab 35 .ROUTE C-500 (Ascorbic Acid) 500 Mg Chew 500 Mg DAILY Active Ordered Medications Current Medications Medications (Trade) Dose Ordered Sig/Isra Route Start Time Stop Time Status Last Admin (Tylenol) 650 mg Q4H PRN PO 08/28/17 16:00 (Milk Of Magnesia Liq) 30 ml DAILY PRN PO 08/28/17 16:00 (Mag-Al Plus Susp Liq) 30 ml Q6H PRN PO 08/28/17 16:00 (Habitrol 21 Mg Patch.24 Hr) 1 patch DAILY T-DERMAL 08/28/17 16:36 08/29/17 09:08 Miscellaneous Information 1 DAILY T-DERMAL 08/28/17 16:00 08/29/17 09:00 (Clozaril) 300 mg BID PO 08/28/17 21:00 08/29/17 09:07 (Synthroid) 125 mcg DAILY@0600 PO 08/29/17 06:00 08/29/17 05:53 (Glucophage) 500 mg BIDPC PO 08/28/17 18:30 08/29/17 09:07 (Zoloft) 100 mg DAILY PO 08/29/17 09:00 08/29/17 09:07 (Desyrel) 50 mg HS PO 08/28/17 21:00 08/28/17 21:33 (Artane) 5 mg HS PO 08/28/17 21:00 08/28/17 21:33 (Lipitor) 80 mg DAILY PO 08/29/17 09:00 08/29/17 09:07 Patient Own Medication PT OWN MED: TRESIBA(DEGLUDEC)--NE... TID SQ 08/29/17 09:00 Future Hold (D50w (Vial) Inj) 50 ml UNSCH PRN IV PUSH 08/29/17 10:45 (Glucagon Inj) 1 mg UNSCH PRN OTHER 08/29/17 10:45 (NovoLOG SUPPLEMENTAL SCALE) 1 ACHS SLIDING SCALE SQ 08/29/17 12:00 08/29/17 11:32 (Latuda) 40 mg WITH DINNER PO 08/29/17 18:00 (Cogentin) 1 mg Q12HR PRN PO 08/29/17 10:45 (Cogentin Inj) 1 mg Q12HR PRN IM 08/29/17 10:45 (Ativan) 0.5 mg Q6H PRN PO 08/29/17 10:45 (Ativan Inj) 0.5 mg Q6H PRN IM 08/29/17 10:45 (Benadryl) 50 mg HS PRN PO 08/29/17 10:45 Family History Both mother and father with diabetes and hypertension Social History Smokes tobacco, 1/2 to 1 PPD Denies any alcohol or illicit drug use Physical Exam Vital Signs Vital Signs Date Time Temp Pulse Resp B/P (MAP) Pulse Ox O2 Delivery O2 Flow Rate FiO2 08/29/17 06:15 97.9 91 16 118/62 (80) 92 08/28/17 20:00 98.0 95 17 140/84 (102) 96 Physical Exam GENERAL: Well-nourished, well-developed middle-aged obese female patient in [facility]. SKIN: Warm and dry. No rash. HEAD: Normocephalic. Atraumatic. ENT: Pupils equal and round. Mucous membranes pink and moist. NECK: Supple. Trachea midline. CARDIOVASCULAR: Regular rate and rhythm. No murmur appreciated. RESPIRATORY: No accessory muscle use. Clear to auscultation. Breath sounds equal bilaterally. GASTROINTESTINAL: Abdomen soft, non-tender, nondistended. Normoactive bowel sounds x4. MUSCULOSKELETAL: No obvious deformities. Extremities without clubbing, cyanosis , or edema. NEUROLOGICAL: Awake and alert. No obvious cranial nerve deficits. Motor grossly within normal limits. Moving all extremities spontaneously. Normal speech. Laboratory Laboratory Tests Test 08/29/17 08:06 Blood Urea Nitrogen 19 Creatinine 1.03 Random Glucose 265 Calcium Level 9.4 Sodium Level 137 Potassium Level 4.1 Chloride Level 106 Carbon Dioxide Level 20.4 Anion Gap 11 Estimat Glomerular Filtration Rate 58 Triglycerides Level 237 Cholesterol Level 149 LDL Cholesterol 52 HDL Cholesterol 49.6 Cholesterol/HDL Ratio 3.00 Result Diagram: 08/27/17 2257 08/29/17 0806 Assessment and Plan Problem List: (1) Diabetes mellitus ICD Code: E11.9 - Type 2 diabetes mellitus without complications Assessment and Plan 46-year-old female with history of insulin-dependent diabetes, hyperlipidemia, hypothyroidism, GERD, anxiety, depression, bipolar, schizoaffective, admitted to inpatient psych under Rose act from [facility]. Reportedly the patient has been hearing voices to kill herself. Hospitalist consulted for medical management of diabetes. Paranoid schizophrenia: Acute exacerbation -Continue management per psychiatry -Continue on clozapine, Zoloft, trazodone Insulin-dependent diabetes mellitus: Chronic -The patient is on Tarceva 50 units at bedtime, however medication not on formulary in the patient does not have anyone to bring this to her -Will place on Levemir 40 units at bedtime (patient's old Levemir dose) for now and titrate up as needed -Continue patient's metformin and glimepiride -Monitor Accu-Cheks and cover with SSI Hyperlipidemia: Chronic -Continue patient's statin GERD: Chronic -Continue patient's Protonix Hypothyroidism: Chronic -Continue patient's Synthroid DVT prophylaxis: Patient is ambulatory Discussed Condition With Patient, RN, Shonda Davidson PA-C Aug 29, 2017 11:56 am
[2017-08-29 13:55] LABS: HEMOGLOBIN A1C 6.8 % (4.3-6.0)
[2017-08-29] MEDS ORDERED: LURASIDONE 40 MG TAB PO SCH (18:00)
[2017-08-29 18:14] VITALS: BP 132/74; PULSE 99; RESP 17; TEMP 98; O2SAT 97
[2017-08-29] MEDS: TRIHEXYPHENIDYL HCL 5 MG TAB PO SCH (21:13)
[2017-08-29] MEDS: traZODone HCL 50 MG TAB PO SCH (21:13)
[2017-08-29] MEDS: INSULIN DETEMIR 100 UNITS/ML VIAL SQ SCH (21:23)
[2017-08-30] MEDS: LEVOTHYROXINE SODIUM 125 MCG TAB PO SCH (06:00)
[2017-08-30 06:17] VITALS: BP 119/70; PULSE 86; RESP 18; TEMP 98.1; O2SAT 96
[2017-08-30] MEDS: INSULIN ASPART SUPPLEMENTAL SCALE SQ SCH ×4 (06:37→21:00)
[2017-08-30] MEDS: NICOTINE 21 MG/24 HR PATCH T-DERMAL SCH (08:40)
[2017-08-30] MEDS: cloZAPine 100 MG TAB PO SCH ×2 (08:41→21:10)
[2017-08-30] MEDS: SERTRALINE HCL 100 MG TAB PO SCH (08:41)
[2017-08-30] MEDS: metFORMIN HCL 500 MG TAB PO SCH ×2 (08:41→18:07)
[2017-08-30] MEDS: GLIMEPIRIDE 2 MG TAB PO SCH (08:41)
[2017-08-30] MEDS: REMOVE OLD PATCH T-DERMAL SCH (08:41)
[2017-08-30] MEDS: ATORVASTATIN 80 MG TAB PO SCH (08:41)
--- NOTE | 2017-08-30 11:44 | HHI.PR ---
Subjective Remarks Blood Pressures well controlled today. Blood sugar trend is under control currently. No medical changes today. Objective Vitals Vital Signs Date Time Temp Pulse Resp B/P (MAP) Pulse Ox O2 Delivery O2 Flow Rate FiO2 08/30/17 06:17 98.1 86 18 119/70 (86) 96 08/29/17 18:14 98.0 99 17 132/74 (93) 97 I/O 08/29/17 08/29/17 08/29/17 08/30/17 08/30/17 08/30/17 07:00 15:00 23:00 07:00 15:00 23:00 Intake Total 360 ml Balance 360 ml Intake Oral 360 ml Result Diagram: 08/27/17 2257 08/29/17 0806 A/P Problem List: (1) Diabetes mellitus ICD Code: E11.9 - Type 2 diabetes mellitus without complications Celso Ramirez MD Aug 30, 2017 11:43
--- NOTE | 2017-08-30 12:30 | HHI.PYPN ---
Subjective Chief Complaint: Psychosis Remarks Patient seen and examined with counselor. Chart reviewed. Case discussed with nursing staff. No behavioral issues noted. Case discussed with counselor. On my examination today, the patient says that she continues to experience command auditory hallucinations not to attend her her hygiene needs. She says that she has not showered today, for example. I did encourage her to go ahead and shower. She is also very fretful and concerned about losing her disability benefits because she says the voices are saying that she will lose them. She denies any command auditory hallucinations to hurt herself today. She denies any suicidal ideation. She denies any side effects from medications besides some mild restless legs yesterday evening, although she is not sure if this is a medication side effect or a "spiritual happening." No physical complaints. Review of Systems ROS Limitations: Psychotic Except as stated in HPI: all other systems reviewed are Neg Mental Status Examination Appearance: Appropriate Consciousness: Alert Orientation: x4 Motor Activity: Other (Mild chewing movement noted in mouth. In retrospect this may have been present yesterday. No hand tremor, no cogwheeling, no other motor abnormalities noted. No reported dental issues.) Speech: Unremarkable Language: Adequate Fund of Knowledge: Adequate Attention and Concentration: Adequate Memory: Unremarkable (Grossly intact on clinical exam) Mood: Anxious, Other (Dysphoric) Affect: Anxious, Other (Consistent with mood) Thought Process & Associations: Intact, Logical, Linear Thought Content: Hallucinations, Delusional Hallucination Type: Auditory (Ongoing, as above) Delusion Type: Paranoid Suicidal Ideation: No Suicidal Plan: No Suicidal Intention: No Homicidal Ideation: No Homicidal Plan: No Homicidal Intention: No Insight: Adequate Judgment: Adequate Results Labs Labs reviewed. Vitals/IOs Vital Signs Date Time Temp Pulse Resp B/P (MAP) Pulse Ox O2 Delivery O2 Flow Rate FiO2 08/30/17 06:17 98.1 86 18 119/70 (86) 96 Assessment & Plan Problem List: (1) Schizophrenia, paranoid, chronic ICD Codes: F20.0 - Paranoid schizophrenia Assessment & Plan Titrate Latuda to 60mg with dinner to target residual psychotic symptoms. Nurse to complete AIMS evaluation. Continue other psychotropics as ordered. Hospitalist input noted and appreciated. Continue other medications and care as ordered. Justification for Cont. Inpt. Medication changes. Impairment in reality construction. High risk for decompensation in less restrictive environment. Discharge Planning Pending psychiatric stabilization Request HC Surrog/Guard Advoc?: No Ulices Richardson MD Aug 30, 2017 12:30
--- NOTE | 2017-08-30 14:20 | HHI.PR ---
Objective Vitals Vital Signs Date Time Temp Pulse Resp B/P (MAP) Pulse Ox O2 Delivery O2 Flow Rate FiO2 08/30/17 06:17 98.1 86 18 119/70 (86) 96 08/29/17 18:14 98.0 99 17 132/74 (93) 97 I/O 08/29/17 08/29/17 08/29/17 08/30/17 08/30/17 08/30/17 07:00 15:00 23:00 07:00 15:00 23:00 Intake Total 360 ml Balance 360 ml Intake Oral 360 ml Result Diagram: 08/27/17 2257 08/29/17 0806 A/P Problem List: (1) Diabetes mellitus ICD Code: E11.9 - Type 2 diabetes mellitus without complications Aleena Palacio Aug 30, 2017 14:20
[2017-08-30] MEDS: FAMOTIDINE 20 MG TAB PO SCH ×2 (14:51→21:10)
[2017-08-30] MEDS: POLYETHYLENE GLYCOL 17 GM PKG PO SCH (14:51)
[2017-08-30] MEDS: LURASIDONE 40 MG TAB PO SCH (18:07)
[2017-08-30 18:37] VITALS: BP 142/79; PULSE 101; RESP 18; TEMP 98.8; O2SAT 98
[2017-08-30] MEDS ORDERED: INSULIN DETEMIR 100 UNITS/ML VIAL SQ SCH (21:00)
[2017-08-30] MEDS: INSULIN DETEMIR 100 UNITS/ML VIAL SQ SCH (21:00)
[2017-08-30] MEDS: TRIHEXYPHENIDYL HCL 5 MG TAB PO SCH (21:10)
[2017-08-30] MEDS: traZODone HCL 50 MG TAB PO SCH (21:10)
--- NOTE | 2017-08-30 21:41 | EKG ---
Date Performed: 08/29/2017 Time Performed: 12:46:03 PTAGE: 46 years EKG: Sinus rhythm MARKED LEFT AXIS DEVIATION POSSIBLE ANTERIOR MYOCARDIAL INFARCTION , PROBABLY OLD ABNORMAL ECG PREVIOUS TRACING : 11/30/2016 18.43 Since the previous tracing, no significant change noted DOCTOR: Austin Buchanan Interpretating Date/Time 08/30/2017 21:39:36
[2017-08-31 05:50] VITALS: BP 137/88; PULSE 86; RESP 16; TEMP 97.6; O2SAT 97
[2017-08-31] MEDS: LEVOTHYROXINE SODIUM 125 MCG TAB PO SCH (06:09)
[2017-08-31] MEDS: INSULIN ASPART SUPPLEMENTAL SCALE SQ SCH ×4 (06:56→19:56)
[2017-08-31] MEDS: SERTRALINE HCL 100 MG TAB PO SCH (08:14)
[2017-08-31] MEDS: POLYETHYLENE GLYCOL 17 GM PKG PO SCH (08:14)
[2017-08-31] MEDS: metFORMIN HCL 500 MG TAB PO SCH ×2 (08:14→17:35)
[2017-08-31] MEDS: ATORVASTATIN 80 MG TAB PO SCH (08:14)
[2017-08-31] MEDS: FAMOTIDINE 20 MG TAB PO SCH ×2 (08:15→21:35)
[2017-08-31] MEDS: cloZAPine 100 MG TAB PO SCH ×2 (08:15→21:35)
[2017-08-31] MEDS: GLIMEPIRIDE 2 MG TAB PO SCH (08:15)
[2017-08-31] MEDS: NICOTINE 21 MG/24 HR PATCH T-DERMAL SCH (08:15)
[2017-08-31] MEDS: REMOVE OLD PATCH T-DERMAL SCH (08:16)
--- NOTE | 2017-08-31 10:20 | HHI.PYPN ---
Subjective Chief Complaint: Psychosis Remarks Patient seen and examined with nurse. Chart reviewed. Case discussed with nursing staff. No behavioral issues noted overnight. Case discussed with counselor. Patient will return to previous facility on discharge per counselor. On my examination today, I find the patient in the day area. She appears somewhat preoccupied and downcast. When we adjourn with nurse to her room she does brighten somewhat, although she remains a little dysphoric. Mood is "okay." She does endorse ongoing auditory hallucinations, last this morning , telling her to neglect self-care. She does say that she pushed through and was able to shower. Denies any command auditory hallucinations to self injure. Denies any side effects from medications. No physical complaints. Pleased with increased dose of Latuda; she does not believe this needs to be further increased. Review of Systems ROS Limitations: Psychotic Except as stated in HPI: all other systems reviewed are Neg Mental Status Examination Appearance: Appropriate Consciousness: Alert Orientation: x4 Motor Activity: Other (Mouth movements unchanged today. No other motor abnormalities noted.) Speech: Unremarkable Language: Adequate Fund of Knowledge: Adequate Attention and Concentration: Adequate Memory: Unremarkable (Remains grossly intact on clinical exam) Mood: Other (Dysphoric) Affect: Other (Consistent with mood) Thought Process & Associations: Intact, Logical, Linear Thought Content: Hallucinations Hallucination Type: Auditory (Decreasing but still present, as above) Delusion Type: None Suicidal Ideation: No Suicidal Plan: No Suicidal Intention: No Homicidal Ideation: No Homicidal Plan: No Homicidal Intention: No Insight: Adequate Judgment: Adequate Results Labs Labs reviewed. No new labs. Vitals/IOs Vital Signs Date Time Temp Pulse Resp B/P (MAP) Pulse Ox O2 Delivery O2 Flow Rate FiO2 08/31/17 05:50 97.6 86 16 137/88 (499) 97 Assessment & Plan Problem List: (1) Schizophrenia, paranoid, chronic ICD Codes: F20.0 - Paranoid schizophrenia Assessment & Plan Continue Latuda augmenting existing psychotropics as ordered. Patient is improving with this agent but still experiencing some CAH to neglect self-care, and I think it is prudent to monitor patient on the inpatient unit overnight to ensure these resolve and do not worsen. Continue other medications and care as ordered. Justification for Cont. Inpt. Impairment in reality construction. Monitoring for impairment in self-care. Discharge Planning Possible discharge tomorrow, Monday. Request HC Surrog/Guard Advoc?: No Ulices Richardson MD Aug 31, 2017 10:20
--- NOTE | 2017-08-31 14:42 | HHI.PR ---
Subjective Remarks Follow-up visit for diabetes mellitus. Patient is seen and examined in the day room today, no concerns reported. Denies fevers, chills, N/V/D, moved her bowels , acid reflux has resolved. Nurse report patient refusing insulin when BS<200. Possible D/C tomorrow. Objective Vitals Vital Signs Date Time Temp Pulse Resp B/P (MAP) Pulse Ox O2 Delivery O2 Flow Rate FiO2 08/31/17 05:50 97.6 86 16 137/88 (104) 97 08/30/17 18:37 98.8 101 18 142/79 (100) 98 Result Diagram: 08/27/17 2257 08/29/17 0806 Objective Remarks GENERAL: Well-nourished, well-developed middle-aged obese female patient in [facility]. SKIN: Warm and dry. No rash. HEAD: Normocephalic. Atraumatic. ENT: Pupils equal and round. Mucous membranes pink and moist. NECK: Supple. Trachea midline. CARDIOVASCULAR: Regular rate and rhythm. No murmur appreciated. RESPIRATORY: No accessory muscle use. Clear to auscultation. Breath sounds equal bilaterally. GASTROINTESTINAL: Abdomen soft, non-tender, nondistended. Normoactive bowel sounds x4. MUSCULOSKELETAL: No obvious deformities. Extremities without clubbing, cyanosis , or edema. NEUROLOGICAL: Awake and alert. No obvious cranial nerve deficits. Motor grossly within normal limits. Moving all extremities spontaneously. Normal speech. A/P Problem List: (1) Diabetes mellitus ICD Code: E11.9 - Type 2 diabetes mellitus without complications Assessment and Plan 46-year-old female with history of insulin-dependent diabetes, hyperlipidemia, hypothyroidism, GERD, anxiety, depression, bipolar, schizoaffective, admitted to inpatient psych under Rose act from [facility]. Reportedly the patient has been hearing voices to kill herself. Hospitalist consulted for medical management of diabetes. Paranoid schizophrenia: Acute exacerbation -Continue management per psychiatry - Possible D/C tomorrow Insulin-dependent diabetes mellitus: Chronic -The patient is on Tarceva 50 units at bedtime, however medication not on formulary in the patient does not have anyone to bring this to her -Continue Levemir 40 units at bedtime -Continue patient's metformin and glimepiride -Monitor Accu-Cheks and cover with SSI, BS fluctuate, but stable Hyperlipidemia: Chronic -Continue patient's statin GERD: Chronic -Continue Pepcid Hypothyroidism: Chronic -Continue patient's Synthroid DVT prophylaxis: Patient is ambulatory Discussed with patient and nurse, possible D/C tomorrow. Aleena Palacio Aug 31, 2017 14:42
[2017-08-31] MEDS: LURASIDONE 40 MG TAB PO SCH (17:34)
[2017-08-31 18:48] VITALS: BP 145/70; PULSE 91; RESP 18; TEMP 97.8; O2SAT 98
[2017-08-31] MEDS: INSULIN DETEMIR 100 UNITS/ML VIAL SQ SCH (19:59)
[2017-08-31] MEDS: TRIHEXYPHENIDYL HCL 5 MG TAB PO SCH (21:35)
[2017-08-31] MEDS: traZODone HCL 50 MG TAB PO SCH (21:35)
[2017-09-01] MEDS: LEVOTHYROXINE SODIUM 125 MCG TAB PO SCH (05:56)
[2017-09-01 06:11] VITALS: BP 139/76; PULSE 94; RESP 16; TEMP 98; O2SAT 96
[2017-09-01] MEDS: INSULIN ASPART SUPPLEMENTAL SCALE SQ SCH ×2 (08:00→12:00)
[2017-09-01] MEDS: NICOTINE 21 MG/24 HR PATCH T-DERMAL SCH (09:00)
[2017-09-01] MEDS: POLYETHYLENE GLYCOL 17 GM PKG PO SCH (09:00)
[2017-09-01] MEDS: REMOVE OLD PATCH T-DERMAL SCH (09:00)
[2017-09-01] MEDS ORDERED: LURA40 PO (10:43)
--- NOTE | 2017-09-01 10:43 | HHI.DS ---
Psychiatry Discharge Summary Inpatient Psychiatric care?: Yes Advance Directive: No Reason Not Provided: REFUSED Mental Health AdvanceDirective: No Health Care Proxy: No Admission Admission Date Aug 28, 2017 at 15:58 Admission Diagnosis: (1) Schizophrenia, paranoid, chronic ICD Code: F20.0 - Paranoid schizophrenia Brief History Ms. Juarez is a 46-year-old female with a history of schizophrenia who presents under a Rose act initiated by law enforcement alleging that the patient contacted officers saying that she was hearing voices in her head telling her to kill herself and that she was thinking about overdosing on her insulin. Reviewing the electronic medical record, I note that the patient was psychiatrically hospitalized under Dr. Carrillo last year. Patient seen and examined with counselor Naima. Chart reviewed. Case discussed with nursing staff. On my examination today, patient notes that she has been experiencing worsening auditory hallucinations since 2015. She hears the voices of friends that tell her she is "Satan" or "Beelzebub" and are otherwise deprecatory. Patient notes that she is a devout Yarsanism, and so these deprecatory hallucinations are especially distressing for her. She also notes that the voices tell her not to bathe or attend to other hygiene tasks. Finally, she tells me that the voices instruct her to do "the hated thing," namely suicide. She does continue to endorse suicidal ideation with plan to overdose on insulin, although she does contract for safety on the inpatient unit. Patient notes that she selected the insulin as this is the only medication she self-administers at the facility where she resides. Patient denies any suicidal intent, noting that she is fearful of going to hell. She admits to some feelings of paranoia, but I can elicit no delusional material otherwise. Mood is depressed and anxious secondary to psychotic symptoms. She engages in a fair amount of negative self-talk. No hypomanic or manic symptoms presently. Remainder of the psychiatric ROS is negative. No acute physical complaints. Past psychiatric history: Patient has a history of schizophrenia. She follows on an outpatient basis at [facility]. She has prescribed Clozaril 300 mg twice daily, Zoloft 100 mg daily and trazodone 50 mg at bedtime. Patient notes that she has not been able to tolerate a larger dose of clozapine in the past. She is on monthly CBC blood monitoring. She has also previously tried Geodon, Abilify and Risperdal and has been unable to tolerate Haldol or Seroquel. She has also been on Trileptal, Depakote and lithium in the past. Most recent psychiatric admission was here at [facility]. She was hospitalized 2 years ago at the [facility] at [place]. She endorses 4 or 5 previous suicide attempts, all by overdose, most recently in 2013. Family history: The patient reports that her maternal great aunt and maternal uncle both had schizophrenia. She denies any family history of suicide. Chemical dependency history: The patient denies any abuse of drugs or alcohol presently. She does note that she smoked cannabis in her 20s. Social history: The patient lives in an assisted living facility in [place] called [facility]. She collects [employer]. She has limited contact with her family. She is high school educated. She previously worked doing clerical work until age 30. She denies any history. Denies any legal history. Denies any access to guns or firearms. She is a Yarsanism. Tobacco Use In Past 30 Days: 5 or More Cigarettes/Day Alcohol Use: Never Hospital Course Patient was admitted to a locked, inpatient psychiatric unit. A general medical consultation was obtained and the patient was medically cleared prior to discharge. Appropriate precautions were in place throughout patient's hospital stay. Patient was seen and examined on the unit by psychiatry and also visited by counselor. Psychotropic medications were adjusted. Latuda was added to patient's existing psychotropic regimen for management of psychotic symptoms. Patient tolerated medications well without significant side effects. She did seem to have some mouth movements, likely present at admission and stable throughout hospital stay. There was no evidence of any suicidality or homicidality on the inpatient unit. There was no evidence of self-care deficit. Patient remained in behavioral control and was medication compliant. On the day of discharge: Patient seen and examined with nurse. Chart reviewed. Case discussed with nursing staff. No behavioral issues noted overnight. Case discussed in treatment team. On my examination today, the patient feels ready to leave the hospital today. She denies any suicidal or homicidal ideation or plan and contracts for safety. I can elicit no severe depressive or hypomanic/manic symptoms. She denies any audiovisual hallucinations and says that she has experienced none since yesterday morning. No command auditory hallucinations. I can elicit no delusional material. There is no evident impairment in reality construction. She denies side effects from medications. I have instructed her to keep an eye on the mouth movements and to discuss with outpatient provider if they seem to worsen. No physical complaints. Suicide and violence risk assessment on day of discharge both suggest lower imminent risk from mental illness, and the patient's level of function is adequate for outpatient care. Patient has maximized benefit from this inpatient psychiatric hospital stay and will be discharged back to facility today with psychiatric follow-up as arranged by counselor. Patient is also to follow up with primary care. I have counseled the patient regarding warning signs for need to return to the psychiatric emergency room as part of a general safety plan. Results Blood Pressure 139 / 76 Vital Signs Date Time Temp Pulse Resp B/P (MAP) Pulse Ox O2 Delivery O2 Flow Rate FiO2 09/01/17 06:11 98.0 94 16 139/76 (97) 96 Laboratory Results Test 08/29/17 08:06 Cholesterol Level 149 MG/DL (120-200) HDL Cholesterol 49.6 MG/DL (40.0-60.0) Hemoglobin A1c 6.8 % (4.3-6.0) LDL Cholesterol 52 MG/DL (0-99) Triglycerides Level 237 MG/DL (42-150) Summary of Procedures None done Imaging None done Pending results at discharge: No Medications # of Antipsychotic meds at D/C: 2 Appropriate >1 Antipsych meds?: 4 Approp Antipsych med options 1 - Minimum of three failed multiple trials of monotherapy. 2 - Documented plan to taper to monotherapy due to previous use of multiple meds OR cross-taper in progress at D/C. 3 - Documentation of augmentation of Clozapine. 4 - Justification other than those listed in allowable values 1-3, document here : Multiple antipsychotics required for acute stabilization Discharge Discharge Date: Sep 01, 2017 Discharge Diagnosis: (1) Schizophrenia, paranoid, chronic Diagnosis: Principal (Stabilized) ICD Code: F20.0 - Paranoid schizophrenia Pt Condition on Discharge: Stable Discharge Disposition: Discharge Home Discharge Instructions Diet Instructions: Diabetic Diet Activities you can perform: Weight Bearing as Jes Scheduled Appointment: Satnam Zuluaga Appointment Date: Sep 04, 2017 Appointment Time: 8am-3pm New Orders: BASIC METABOLIC PROF - 1 Week New Medications: Lurasidone (Latuda) 40 Mg Tab 60 MG PO WITH DINNER for Mental Health for 15 Days, #23 TAB 1 Refill Continued Medications: Ascorbic Acid (C-500) 500 Mg Chew 500 MG DAILY, #2 Cholecalciferol (Vitamin D3) 5,000 Unit Cap 5000 UNITS PO DAILY for health for 30 Days, #30 CAP Clozapine (Clozaril) 100 Mg Tab 300 MG PO BID for health for 30 Days, #180 TAB Glimepiride (Amaryl) 2 Mg Tab 2 MG PO DAILYAC for health for 30 Days, #30 TAB Insulin Degludec Inj (Tresiba Flextouch Pen Inj) 300 unit/3 ML Pen 1 UNITS SQ TID for Blood Sugar Management, #15 ML 0 Refills Insulin Detemir Inj (Levemir Inj) 1,000 unit/ 10 ML Vial 40 UNITS SQ HS for health for 30 Days, #1 INJECTION Do not mix with any other Insulin. Levothyroxine (Synthroid) 125 Mcg Tab 125 MCG PO DAILY@0600 for health for 30 Days, #30 TAB Metformin (Glucophage) 500 Mg Tab 500 MG PO BIDPC for health for 30 Days, #60 TAB Norgestimate-Ethinyl Estradiol (Tri-Previfem) 0.18/0.215/0.25 Mg-35 Mcg Tab 35 .ROUTE Pantoprazole (Protonix) 20 Mg Tab 20 MG PO DAILY for health for 30 Days, #30 TAB Polyethylene Glycol 3350 Powder (Polyethylene Glycol 3350 Powder) 17 Gram Pow 17 GM PO DAILY for health for 30 Days, #30 PACKET Rosuvastatin (Crestor) 40 Mg Tab 40 MG PO DAILY for Cholesterol Management, #30 TAB 0 Refills Sennosides-Docusate Sodium (Senna Plus 8.6-50 mg) 8.6 Mg-50 Mg Tab 1 TAB PO BID for health for 30 Days, #60 TAB Sertraline (Zoloft) 100 Mg Tab 100 MG PO DAILY for health for 30 Days, #30 TAB Trazodone (Trazodone) 50 Mg Tab 50 MG PO HS for Control Depression, #30 TAB 0 Refills Trihexyphenidyl (Trihexyphenidyl) 5 Mg Tab 5 MG PO HS for health for 30 Days, #30 TAB Discontinued Medications: Atorvastatin (Atorvastatin) 40 Mg Tab 40 MG PO HS for Cholesterol Management, #30 TAB 0 Refills Glimepiride (Glimepiride) 2 Mg Tab 2 MG PO DAILY for Blood Sugar Management, #30 TAB 0 Refills Take with breakfast or first main meal Liothyronine (Cytomel) 25 Mcg Tab 25 MCG PO DAILY for health for 30 Days, #30 TAB Discharge Time > 30 minutes Mental Status Examination Appearance: Appropriate Consciousness: Alert Orientation: x4 Motor Activity: Other (Mouth movements again unchanged today. No other motor abnormalities noted.) Speech: Unremarkable Language: Adequate Fund of Knowledge: Adequate Attention and Concentration: Adequate Memory: Unremarkable (Grossly intact on clinical exam) Mood: Appropriate Affect: Appropriate Thought Process & Associations: Intact, Logical, Goal directed, Linear Thought Content: Appropriate Hallucination Type: None Delusion Type: None Suicidal Ideation: No Suicidal Plan: No Suicidal Intention: No Homicidal Ideation: No Homicidal Plan: No Homicidal Intention: No Insight: Adequate Judgment: Adequate Discharge/Advance Care Plan Health Problems: (1) Schizophrenia, paranoid, chronic Goals to promote your health * To prevent worsening of your condition and complications * To maintain your health at the optimal level Directions to meet your goals Take your medications as prescribed Follow your dietary instruction Follow activity as directed Keep your appointments as scheduled Take your immunizations and boosters as scheduled If your symptoms worsen call your PCP, if no PCP go to Urgent Care Center or Emergency Room For 26/09 questions related to your inpatient stay or results of tests pending at discharge, please contact Dr. Ulices Richardson at Smoking is Dangerous to Your Health. Avoid second hand smoking Ulices Richardson MD Sep 01, 2017 10:43
[2017-09-01] MEDS: SERTRALINE HCL 100 MG TAB PO SCH (11:21)
[2017-09-01] MEDS: ATORVASTATIN 80 MG TAB PO SCH (11:21)
[2017-09-01] MEDS: metFORMIN HCL 500 MG TAB PO SCH (11:21)
[2017-09-01] MEDS: cloZAPine 100 MG TAB PO SCH (11:21)
[2017-09-01] MEDS: GLIMEPIRIDE 2 MG TAB PO SCH (11:21)
[2017-09-01] MEDS: FAMOTIDINE 20 MG TAB PO SCH (11:21)
== END 2017-09-01 13:30 | disposition home or self-care (01) | DRG 885 ==
LOC: NEDAMB 22:46 → NEDA 08-28 15:58 → H260 08-28 19:53
PROVIDERS: ADMIT Psychiatry & Neurology Psychiatry; ATTEND Psychiatry & Neurology Psychiatry
DX: F20.0 Paranoid schizophrenia (principal); R45.851 Suicidal ideations; E11.9 Type 2 diabetes mellitus without complications; E03.9 Hypothyroidism, unspecified; F31.9 Bipolar disorder, unspecified; F41.9 Anxiety disorder, unspecified; E78.00 Pure hypercholesterolemia, unspecified; K21.9 Gastro-esophageal reflux disease without esophagitis; G43.909 Migraine, unspecified, not intractable, without status migrainosus; G25.81 Restless legs syndrome; E07.9 Disorder of thyroid, unspecified; G47.00 Insomnia, unspecified; E78.5 Hyperlipidemia, unspecified; F17.210 Nicotine dependence, cigarettes, uncomplicated; Z79.4 Long term (current) use of insulin; Z83.3 Family history of diabetes mellitus; Z82.49 Family history of ischemic heart disease and other diseases of the circulatory system; Z81.8 Family history of other mental and behavioral disorders; Z91.5 Personal history of self-harm; Z79.84 Long term (current) use of oral hypoglycemic drugs; Z79.899 Other long term (current) drug therapy
CPT/HCPCS: 80048; 80053; 80061; 80307; 81001; 82948; 83036; 84443; 84703; 85025; 93005; 99285; J1815